=== PATIENT | female | born 1970 | race American Indian/Alaskan Native ===

== ENCOUNTER 2019-01-11 04:21 | Emergency (ER) | payer MEDICAID ==
[2019-01-11] MEDS ORDERED: VIMPAT PO ONE (04:27)
[2019-01-11] MEDS ORDERED: TYLENOL PO ONE (04:31)
--- NOTE | 2019-01-11 04:31 | Emergency Department Report ---
<KATIANADUSTYSHARON Carpio - Last Filed: 01/11/19 05:25> ED Seizure HPI - General Stated Complaint: SEIZURE Time Seen by Provider: 01/11/19 04:26 Source: patient, EMS - History of Present Illness Initial Comments: 48-year-old female presents to the ED following seizure at home. Patient has history of seizures, reportedly had multiple seizures on yesterday as well. Patient states she has been compliant with her Keppra, however she ran out of her Vimpat 2 days ago. Patient only complains of a mild headache, which is common following her seizures. MD Complaint: seizure -: This morning Description of Episode: loss of consciousness Witnessed:: Yes Seizure History: known seizure disorder Place: home Possible Precipitating Event: other (ran out of meds) Associated Symptoms: denies: chest pain, fever/chills, shortness of breath Treatments Prior to Arrival: none - Related Data Home Medications Medication Instructions Recorded Confirmed Last Taken levETIRAcetam [Keppra TAB] 1,000 mg PO BID 01/11/19 01/11/19 01/11/19 Previous Rx's Medication Instructions Recorded Last Taken Type Lacosamide [Vimpat] 100 mg PO Q12HR #60 tablet 01/11/19 Unknown Rx levETIRAcetam [Keppra TAB] 1,000 mg PO BID #60 tab 01/11/19 Unknown Rx Allergies Allergy/AdvReac Type Severity Reaction Status Date / Time phenytoin [From Dilantin] AdvReac Unknown Verified 01/11/19 04:33 ED Review of Systems Comment: All other systems reviewed and negative Constitutional: denies: chills, fever Respiratory: denies: shortness of breath Cardiovascular: denies: chest pain Gastrointestinal: denies: abdominal pain, nausea, vomiting Neurological: headache ED Past Medical Hx - Medications Home Medications: Home Medications Medication Instructions Recorded Confirmed Last Taken Type Lacosamide [Vimpat] 100 mg PO Q12HR #60 tablet 01/11/19 Unknown Rx levETIRAcetam [Keppra TAB] 1,000 mg PO BID 01/11/19 01/11/19 01/11/19 History levETIRAcetam [Keppra TAB] 1,000 mg PO BID #60 tab 01/11/19 Unknown Rx ED Physical Exam - General General appearance: alert, in no apparent distress - Head Head exam: Present: atraumatic, normocephalic - Eye Eye exam: Present: normal appearance, PERRL, EOMI - ENT ENT exam: Present: mucous membranes moist - Neck Neck exam: Present: normal inspection - Respiratory Respiratory exam: Present: normal lung sounds bilaterally. Absent: respiratory distress - Cardiovascular Cardiovascular Exam: Present: regular rate, normal rhythm - GI/Abdominal GI/Abdominal exam: Present: soft. Absent: distended - Extremities Exam Extremities exam: Present: normal inspection - Neurological Exam Neurological exam: Present: alert (responses are slow but appropriate), oriented X3, CN II-XII intact. Absent: motor sensory deficit - Psychiatric Psychiatric exam: Present: normal affect, normal mood - Skin Skin exam: Present: warm, dry, intact, normal color ED Medical Decision Making - Lab Data Result diagrams: 01/11/19 04:37 01/11/19 04:37 ED Disposition Clinical Impression: Seizure Disposition: DC-01 TO HOME OR SELFCARE Is pt being admited?: No Condition: Stable Additional Instructions: Do not drive or operate motor vehicles for the next 6 months. Take the seizure medications as directed. Follow up with a primary care doctor or neurology specialist within the next 2 weeks. Return to the emergency room right away w ith new, worsening or different symptoms, symptoms not present on initial emergency room evaluation. Prescriptions: Lacosamide [Vimpat] 100 mg PO Q12HR #60 tablet Referrals: MENA PASCUAL MD [Primary Care Provider] - 3-5 Days [facility] [Provider Group] - 3-5 Days VICENTE CHAMPAGNE MD [Referring] - 3-5 Days <GRACE DASH - Last Filed: 01/11/19 06:55> ED Review of Systems ROS: Stated complaint: SEIZURE Other details as noted in HPI ED Course Vital Signs 01/11/19 01/11/19 01/11/19 03:41 04:00 04:29 Temperature 97.9 F Pulse Rate 98 H Respiratory 16 Rate Blood Pressure 132/68 132/68 153/92 O2 Sat by Pulse 100 100 94 Oximetry 01/11/19 01/11/19 01/11/19 04:30 05:00 05:30 Temperature Pulse Rate 96 H 91 H 89 Respiratory 28 H 19 23 Rate Blood Pressure 153/92 153/92 124/42 O2 Sat by Pulse 95 95 98 Oximetry 01/11/19 01/11/19 06:00 06:30 Temperature Pulse Rate 85 84 Respiratory 20 17 Rate Blood Pressure 124/42 127/65 O2 Sat by Pulse 100 98 Oximetry - Reevaluation(s) Reevaluation #1: 01/11/19 06:52 The patient is seen and examined. The patient is walking with a steady gait. The patient is clinically sober. The patient counseled to not drive for the next 6 months. She verbalizes understanding. She indicates that she typically follows at [place] for her convulsive events. She states that she is not , and states she has not delivered her given within the past 6 weeks. She indicates that she is ready for discharge. She denies physical pain at this time. Patient pleasant, smiling, cooperative, vital signs within normal limits, and she does not appear to be in any acute distress. ED Medical Decision Making - Lab Data Result diagrams: 01/11/19 04:37 01/11/19 04:37 Vital Signs 01/11/19 01/11/19 01/11/19 03:41 04:00 04:29 Temperature 97.9 F Pulse Rate 98 H Respiratory 16 Rate Blood Pressure 132/68 132/68 153/92 O2 Sat by Pulse 100 100 94 Oximetry 01/11/19 01/11/19 01/11/19 04:30 05:00 05:30 Temperature Pulse Rate 96 H 91 H 89 Respiratory 28 H 19 23 Rate Blood Pressure 153/92 153/92 124/42 O2 Sat by Pulse 95 95 98 Oximetry 01/11/19 01/11/19 06:00 06:30 Temperature Pulse Rate 85 84 Respiratory 20 17 Rate Blood Pressure 124/42 127/65 O2 Sat by Pulse 100 98 Oximetry Lab Results 01/11/19 01/11/19 Range/Units 04:37 04:37 WBC 7.9 (4.5-11.0) K/mm3 RBC 4.72 (3.65-5.03) M/mm3 Hgb 12.9 (10.1-14.3) gm/dl Hct 39.8 (30.3-42.9) % MCV 84 (79-97) fl MCH 27 L (28-32) pg MCHC 32 (30-34) % RDW 17.0 H (13.2-15.2) % Plt Count 278 (140-440) K/mm3 Lymph % (Auto) 38.0 H (13.4-35.0) % [place] % (Auto) 5.0 (0.0-7.3) % Eos % (Auto) 2.9 (0.0-4.3) % Baso % (Auto) 0.7 (0.0-1.8) % Lymph # 3.0 (1.2-5.4) K/mm3 [place] # 0.4 (0.0-0.8) K/mm3 Eos # 0.2 (0.0-0.4) K/mm3 Baso # 0.1 (0.0-0.1) K/mm3 Seg Neutrophils % 53.4 (40.0-70.0) % Seg Neutrophils # 4.3 (1.8-7.7) K/mm3 Sodium 138 (137-145) mmol/L Potassium 3.7 (3.6-5.0) mmol/L Chloride 99.8 (98-107) mmol/L Carbon Dioxide 18 L (22-30) mmol/L Anion Gap 24 mmol/L BUN 6 L (7-17) mg/dL Creatinine 0.8 (0.7-1.2) mg/dL Estimated GFR > 60 ml/min BUN/Creatinine Ratio 8 % Glucose 125 H (65-100) mg/dL Calcium 9.1 (8.4-10.2) mg/dL Critical care attestation.: If time is entered above; I have spent that time in minutes in the direct care of this critically ill patient, excluding procedure time. ED Disposition Is pt being admited?: No Does the pt Need Aspirin: No
[2019-01-11 05:06] LABS: Basophils # (Auto) 0.1 K/mm3 (0.0-0.1); Basophils % (Auto) 0.7 % (0.0-1.8); Eosinophils # (Auto) 0.2 K/mm3 (0.0-0.4); Eosinophils % (Auto) 2.9 % (0.0-4.3); Hematocrit 39.8 % (30.3-42.9); Hemoglobin 12.9 gm/dl (10.1-14.3); Mean Corpuscular HGB Conc 32 % (30-34); Mean Corpuscular Volume 84 fl (79-97); Monocytes # (Auto) 0.4 K/mm3 (0.0-0.8); Platelet Count 278 K/mm3 (140-440); Red Blood Count 4.72 M/mm3 (3.65-5.03)
[2019-01-11 05:15] LABS: BUN/Creatinine Ratio 8; Blood Urea Nitrogen 6 mg/dL (7-17); Calcium 9.1 mg/dL (8.4-10.2); Hemolysis Index 19
[2019-01-11 06:32] VITALS: BP 127/65
[2019-01-11] MEDS ORDERED: KEPPRA PO ONE (06:53)
== END 2019-01-11 11:52 | disposition home or self-care (01) ==
LOC: ED 04:21
DX: G40.909 Epilepsy, unspecified, not intractable, without status epilepticus (principal); Z88.8 Allergy status to other drugs, medicaments and biological substances
CPT/HCPCS: 36415; 80048; 85025; 99283

== ENCOUNTER 2019-02-07 10:28 | Inpatient (IN) | payer MEDICAID ==
[2019-02-07 11:47] LABS: Basophils % (Auto) 0.4 % (0.0-1.8); Eosinophils # (Auto) 0.3 K/mm3 (0.0-0.4); Hematocrit 39.5 % (30.3-42.9); Hemoglobin 13.2 gm/dl (10.1-14.3); Lymphocytes # (Auto) 1.1 K/mm3 (1.2-5.4); Lymphocytes % (Auto) 15.5 % (13.4-35.0); Mean Corpuscular HGB Conc 33 % (30-34); Mean Corpuscular Volume 82 fl (79-97); Monocytes # (Auto) 0.3 K/mm3 (0.0-0.8); Monocytes % (Auto) 4.6 % (0.0-7.3); Platelet Count 331 K/mm3 (140-440); Red Blood Count 4.84 M/mm3 (3.65-5.03); Red Cell Distribution Width 16.3 % (13.2-15.2)
[2019-02-07 12:10] LABS: INR 1.34 (0.87-1.13); Partial Thromboplastin Time 27.7 Sec. (24.2-36.6)
[2019-02-07 12:25] LABS: BUN/Creatinine Ratio 8; Blood Urea Nitrogen 32 mg/dL (7-17); Calcium 7.6 mg/dL (8.4-10.2); Hemolysis Index 8
[2019-02-07] MEDS ORDERED: ZOFRAN IV ONE (12:37)
[2019-02-07] MEDS ORDERED: NACL 0.9% 1000 ML 2,000 ML IV ONE (12:37)
--- NOTE | 2019-02-07 12:38 | Emergency Department Report ---
ED General Adult HPI - General Chief complaint: Weakness Stated complaint: RASH/WEAKNESS Time Seen by Provider: 02/07/19 11:17 Source: patient, EMS (ems notes not available at time of chart dictation), RN notes reviewed Mode of arrival: Stretcher Limitations: No Limitations - History of Present Illness Initial comments: This is a 48-year-old female. The patient is not known to this provider previously. Her primary care doctor is Dr. Moya Her past medical history includes seizure, and she reportedly takes Keppra and vimpat Patient was feeling like she was in her usual state of health up until a few days ago, reports runny nose, nasal congestion, sinus fullness, and "it felt like I had the flu." Since then, she's been having generalized weakness, myalgias, nonspecific for any skin rash, started "all over my body." She reports taking [id number] medications, but no recent antibiotics. She describes dizziness, and generalized weakness. No chest pain, no abdominal pain. Symptoms are constant, did not radiate anywhere, worse with physical exertion, decreased with rest. She denies indwelling vaginal tampon or feminine pad. -: Gradual, days(s) Location: head, face, chest, back, abdomen, left, right, upper extremity, lower extremity Quality: aching Consistency: intermittent Improves with: rest Worsens with: movement - Related Data Home Medications Medication Instructions Recorded Confirmed Last Taken Lacosamide [Vimpat] 200 mg PO BID 02/07/19 02/07/19 02/07/19 Previous Rx's Medication Instructions Recorded Last Taken Type levETIRAcetam [Keppra TAB] 1,000 mg PO BID #60 tab 01/11/19 02/07/19 Rx Famotidine [Pepcid] 20 mg PO BID 7 Days tablet 02/09/19 Unknown Rx Prednisone [predniSONE 5 mg (6-Day 5 mg PO .TAPER #1 tab.ds.pk 02/09/19 Unknown Rx Pack, 21 Tabs)] diphenhydrAMINE [Benadryl CAP] 25 mg PO Q8HR #15 capsule 02/09/19 Unknown Rx Allergies Allergy/AdvReac Type Severity Reaction Status Date / Time doxycycline Allergy Rash Verified 02/07/19 10:56 Penicillins Allergy Rash Verified 02/07/19 10:56 phenytoin [From Dilantin] AdvReac Unknown Verified 01/11/19 04:33 ED Review of Systems ROS: Stated complaint: RASH/WEAKNESS Other details as noted in HPI Constitutional: chills, malaise, weakness Eyes: denies: eye discharge ENT: congestion Respiratory: shortness of breath. denies: wheezing Cardiovascular: denies: chest pain, syncope Gastrointestinal: denies: vomiting Genitourinary: denies: dysuria Musculoskeletal: arthralgia, myalgia Skin: rash, lesions Neurological: weakness Psychiatric: anxiety ED Past Medical Hx - Past Medical History Previous Medical History?: Yes Additional medical history: epilepsy - Surgical History Past Surgical History?: No - Social History Smoking Status: Never Smoker Substance Use Type: None - Medications Home Medications: Home Medications Medication Instructions Recorded Confirmed Last Taken Type levETIRAcetam [Keppra TAB] 1,000 mg PO BID #60 tab 01/11/19 02/07/19 02/07/19 Rx Lacosamide [Vimpat] 200 mg PO BID 02/07/19 02/07/19 02/07/19 History Famotidine [Pepcid] 20 mg PO BID 7 Days tablet 02/09/19 Unknown Rx Prednisone [predniSONE 5 mg (6-Day 5 mg PO .TAPER #1 tab.ds.pk 02/09/19 Unknown Rx Pack, 21 Tabs)] diphenhydrAMINE [Benadryl CAP] 25 mg PO Q8HR #15 capsule 02/09/19 Unknown Rx ED Physical Exam - General Limitations: No Limitations General appearance: alert, anxious, in distress, obese - Head Head exam: Present: atraumatic, normocephalic - Eye Eye exam: Present: normal appearance, EOMI. Absent: nystagmus - ENT ENT exam: Present: normal exam, normal orophraynx, mucous membranes moist, norm al external ear exam - Neck Neck exam: Present: normal inspection, full ROM. Absent: tenderness, meningismus - Respiratory Respiratory exam: Present: normal lung sounds bilaterally. Absent: respiratory distress - Cardiovascular Cardiovascular Exam: Present: regular rate, normal rhythm, normal heart sounds. Absent: bradycardia, tachycardia, irregular rhythm, systolic murmur, diastolic murmur, rubs, gallop - GI/Abdominal GI/Abdominal exam: Present: soft, normal bowel sounds. Absent: distended, tenderness, guarding, rigid, pulsatile mass - Rectal Rectal exam: Present: normal inspection - External exam: Present: normal external exam, bleeding (no tampon or retained foreign body noted. Chaperoned by nurse Jorge Esquivel) Speculum exam: Present: normal speculum exam - Extremities Exam Extremities exam: Present: normal inspection, full ROM, other (2+ pulses noted in the bilateral upper, lower extremities. Compartments soft. No long bony tenderness. The pelvis is stable.). Absent: pedal edema, joint swelling, calf tenderness - Back Exam Back exam: Present: normal inspection, full ROM. Absent: tenderness, CVA tenderness (R), CVA tenderness (L), paraspinal tenderness, vertebral tenderness - Neurological Exam Neurological exam: Present: alert, oriented X3, other (Extraocular movements intact. Tongue midline. No facial droop. Facial sensation intact to light touch in the V1, V2, V3 distribution bilaterally. 5 and 5 strength in 4 extremities.. Sensation is intact to light touch in 4 extremities.). Absent: motor sensory deficit - Psychiatric Psychiatric exam: Present: anxious - Skin Skin exam: Present: dry, rash, erythema (blanching nontender macular erythematous rash, which scattered papules.) ED Course Vital Signs 02/07/19 02/07/19 02/07/19 10:57 11:38 13:56 Temperature 99.1 F Pulse Rate 112 H Respiratory 15 17 15 Rate Blood Pressure 124/60 [Left] O2 Sat by Pulse 99 99 Oximetry ED Medical Decision Making - Lab Data Result diagrams: 02/09/19 06:23 02/09/19 06:23 Vital Signs 02/07/19 11:38 Respiratory 17 Rate Lab Results 02/07/19 02/07/19 02/07/19 Range/Units 11:34 11:34 11:34 WBC 6.9 (4.5-11.0) K/mm3 RBC 4.84 (3.65-5.03) M/mm3 Hgb 13.2 (10.1-14.3) gm/dl Hct 39.5 (30.3-42.9) % MCV 82 (79-97) fl MCH 27 L (28-32) pg MCHC 33 (30-34) % RDW 16.3 H (13.2-15.2) % Plt Count 331 (140-440) K/mm3 Lymph % (Auto) 15.5 (13.4-35.0) % [place] % (Auto) 4.6 (0.0-7.3) % Eos % (Auto) 5.0 H (0.0-4.3) % Baso % (Auto) 0.4 (0.0-1.8) % Lymph # 1.1 L (1.2-5.4) K/mm3 [place] # 0.3 (0.0-0.8) K/mm3 Eos # 0.3 (0.0-0.4) K/mm3 Baso # 0.0 (0.0-0.1) K/mm3 Seg Neutrophils % 74.5 H (40.0-70.0) % Seg Neutrophils # 5.2 (1.8-7.7) K/mm3 PT 16.2 H (12.2-14.9) Sec. INR 1.34 H (0.87-1.13) APTT 27.7 (24.2-36.6) Sec. Thrombin Time (15.1-19.6) Sec. Sodium 125 L (137-145) mmol/L Potassium 3.8 (3.6-5.0) mmol/L Chloride 84.6 L (98-107) mmol/L Carbon Dioxide 21 L (22-30) mmol/L Anion Gap 23 mmol/L BUN 32 H (7-17) mg/dL Creatinine 4.0 H (0.7-1.2) mg/dL Estimated GFR 14 ml/min BUN/Creatinine Ratio 8 % Glucose 180 H (65-100) mg/dL Lactic Acid (0.7-2.0) mmol/L Calcium 7.6 L (8.4-10.2) mg/dL Magnesium (1.7-2.3) mg/dL Total Bilirubin (0.1-1.2) mg/dL AST (5-40) units/L ALT (7-56) units/L Alkaline Phosphatase (35-129) units/L Total Creatine Kinase (30-135) units/L Troponin T < 0.010 (0.00-0.029) ng/mL Total Protein (6.3-8.2) g/dL Albumin (3.9-5) g/dL Albumin/Globulin Ratio % HCG, Quant (0-4) mIU/mL Salicylates (2.8-20.0) mg/dL Acetaminophen (10.0-30.0) ug/mL Plasma/Serum Alcohol (0-0.07) % 02/07/19 02/07/19 02/07/19 Range/Units 11:34 11:34 11:34 WBC (4.5-11.0) K/mm3 RBC (3.65-5.03) M/mm3 Hgb (10.1-14.3) gm/dl Hct (30.3-42.9) % MCV (79-97) fl MCH (28-32) pg MCHC (30-34) % RDW (13.2-15.2) % Plt Count (140-440) K/mm3 Lymph % (Auto) (13.4-35.0) % [place] % (Auto) (0.0-7.3) % Eos % (Auto) (0.0-4.3) % Baso % (Auto) (0.0-1.8) % Lymph # (1.2-5.4) K/mm3 [place] # (0.0-0.8) K/mm3 Eos # (0.0-0.4) K/mm3 Baso # (0.0-0.1) K/mm3 Seg Neutrophils % (40.0-70.0) % Seg Neutrophils # (1.8-7.7) K/mm3 PT (12.2-14.9) Sec. INR (0.87-1.13) APTT (24.2-36.6) Sec. Thrombin Time 17.8 (15.1-19.6) Sec. Sodium (137-145) mmol/L Potassium (3.6-5.0) mmol/L Chloride (98-107) mmol/L Carbon Dioxide (22-30) mmol/L Anion Gap mmol/L BUN (7-17) mg/dL Creatinine (0.7-1.2) mg/dL Estimated GFR ml/min BUN/Creatinine Ratio % Glucose (65-100) mg/dL Lactic Acid (0.7-2.0) mmol/L Calcium (8.4-10.2) mg/dL Magnesium (1.7-2.3) mg/dL Total Bilirubin (0.1-1.2) mg/dL AST (5-40) units/L ALT (7-56) units/L Alkaline Phosphatase (35-129) units/L Total Creatine Kinase 155 H (30-135) units/L Troponin T (0.00-0.029) ng/mL Total Protein (6.3-8.2) g/dL Albumin (3.9-5) g/dL Albumin/Globulin Ratio % HCG, Quant (0-4) mIU/mL Salicylates < 0.3 L (2.8-20.0) mg/dL Acetaminophen (10.0-30.0) ug/mL Plasma/Serum Alcohol (0-0.07) % 02/07/19 02/07/19 02/07/19 Range/Units 11:34 11:34 11:34 WBC (4.5-11.0) K/mm3 RBC (3.65-5.03) M/mm3 Hgb (10.1-14.3) gm/dl Hct (30.3-42.9) % MCV (79-97) fl MCH (28-32) pg MCHC (30-34) % RDW (13.2-15.2) % Plt Count (140-440) K/mm3 Lymph % (Auto) (13.4-35.0) % [place] % (Auto) (0.0-7.3) % Eos % (Auto) (0.0-4.3) % Baso % (Auto) (0.0-1.8) % Lymph # (1.2-5.4) K/mm3 [place] # (0.0-0.8) K/mm3 Eos # (0.0-0.4) K/mm3 Baso # (0.0-0.1) K/mm3 Seg Neutrophils % (40.0-70.0) % Seg Neutrophils # (1.8-7.7) K/mm3 PT (12.2-14.9) Sec. INR (0.87-1.13) APTT (24.2-36.6) Sec. Thrombin Time (15.1-19.6) Sec. Sodium (137-145) mmol/L Potassium (3.6-5.0) mmol/L Chloride (98-107) mmol/L Carbon Dioxide (22-30) mmol/L Anion Gap mmol/L BUN (7-17) mg/dL Creatinine (0.7-1.2) mg/dL Estimated GFR ml/min BUN/Creatinine Ratio % Glucose (65-100) mg/dL Lactic Acid (0.7-2.0) mmol/L Calcium (8.4-10.2) mg/dL Magnesium (1.7-2.3) mg/dL Total Bilirubin (0.1-1.2) mg/dL AST (5-40) units/L ALT (7-56) units/L Alkaline Phosphatase (35-129) units/L Total Creatine Kinase (30-135) units/L Troponin T (0.00-0.029) ng/mL Total Protein (6.3-8.2) g/dL Albumin (3.9-5) g/dL Albumin/Globulin Ratio % HCG, Quant < 2 (0-4) mIU/mL Salicylates (2.8-20.0) mg/dL Acetaminophen < 5.0 L (10.0-30.0) ug/mL Plasma/Serum Alcohol < 0.01 (0-0.07) % 02/07/19 02/07/19 Range/Units 12:57 12:57 WBC (4.5-11.0) K/mm3 RBC (3.65-5.03) M/mm3 Hgb (10.1-14.3) gm/dl Hct (30.3-42.9) % MCV (79-97) fl MCH (28-32) pg MCHC (30-34) % RDW (13.2-15.2) % Plt Count (140-440) K/mm3 Lymph % (Auto) (13.4-35.0) % [place] % (Auto) (0.0-7.3) % Eos % (Auto) (0.0-4.3) % Baso % (Auto) (0.0-1.8) % Lymph # (1.2-5.4) K/mm3 [place] # (0.0-0.8) K/mm3 Eos # (0.0-0.4) K/mm3 Baso # (0.0-0.1) K/mm3 Seg Neutrophils % (40.0-70.0) % Seg Neutrophils # (1.8-7.7) K/mm3 PT (12.2-14.9) Sec. INR (0.87-1.13) APTT (24.2-36.6) Sec. Thrombin Time (15.1-19.6) Sec. Sodium (137-145) mmol/L Potassium (3.6-5.0) mmol/L Chloride (98-107) mmol/L Carbon Dioxide (22-30) mmol/L Anion Gap mmol/L BUN (7-17) mg/dL Creatinine (0.7-1.2) mg/dL Estimated GFR ml/min BUN/Creatinine Ratio % Glucose (65-100) mg/dL Lactic Acid 2.70 H* (0.7-2.0) mmol/L Calcium (8.4-10.2) mg/dL Magnesium 1.50 L (1.7-2.3) mg/dL Total Bilirubin 0.30 (0.1-1.2) mg/dL AST 19 (5-40) units/L ALT 10 (7-56) units/L Alkaline Phosphatase 74 (35-129) units/L Total Creatine Kinase (30-135) units/L Troponin T (0.00-0.029) ng/mL Total Protein 6.2 L (6.3-8.2) g/dL Albumin 2.6 L (3.9-5) g/dL Albumin/Globulin Ratio 0.7 % HCG, Quant (0-4) mIU/mL Salicylates (2.8-20.0) mg/dL Acetaminophen (10.0-30.0) ug/mL Plasma/Serum Alcohol (0-0.07) % - Medical Decision Making Differential diagnosis, including limited to: Acute renal insufficiency, dehydration, vasomotor nephropathy, renal insufficiency, electrolyte derangement, viral syndrome Assessment and plan: 48-year-old female, with a complaint of weakness, rash, malaise and fatigue. Is tachycardic, with a low-grade temperature, found to have lactic acidosis, suspect viral syndrome. Patient will be given IV fluids. Her physical exam does not demonstrate any retained foreign bodies, and is therefore not consistent with toxic shock syndrome. She is not taking any prescription antibiotics by her history. We will give her IV fluids, and Zofran for nausea. We have recommended admission to the hospital for IV hydration, and supportive care for presumed acute renal insufficiency, and probable hypovolemic hyponatremia. Discussed with Hospital physician, Dr. Warren Cottrell who has accepted the patient to the medical service. Discussed with nephrology on-call, Dr. Robles, who will follow in consultation. Patient's history and physical exam are not consistent with stroke at this time. Critical Care Time: Yes Critical care time in (mins) excluding proc time.: 35 Critical care attestation.: If time is entered above; I have spent that time in minutes in the direct care of this critically ill patient, excluding procedure time. ED Disposition Clinical Impression: GOSIA (acute kidney injury), Rash and other nonspecific skin eruption Disposition: OP ADMIT IP TO THIS HOSP Is pt being admited?: Yes Condition: Fair
[2019-02-07 13:48] LABS: Alanine Aminotransferase 10 units/L (7-56); Albumin 2.6 g/dL (3.9-5)
[2019-02-07] MEDS ORDERED: MAGNESIUM SULFATE 2GM/50ML 2 GM/50 ML BAG IV ONE ×3 (13:51→15:49)
[2019-02-07 13:54] LABS: Bilirubin,Direct < 0.2 mg/dL (0-0.2)
[2019-02-07 14:04] LABS: Bacteria,Urine 1+ /HPF (Negative); Bilirubin,Urine NEG (Negative); Blood,Urine NEG (Negative); Color,Urine Amber (Yellow); Mucus,Urine FEW /HPF; Protein,Urine <15 mg/dL mg/dL (Negative)
[2019-02-07 14:05] LABS: Creatinine,Urine 329.5 mg/dL (0.1-20.0)
--- NOTE | 2019-02-07 14:18 | History and Physical Report ---
History of Present Illness Date of examination: 02/07/19 Date of admission: 02/07/19 13:53 Chief complaint: Rash all over History of present illness: Patient was feeling like she was in her usual state of health up until a few days ago, reports runny nose, nasal congestion, sinus fullness, and "it felt like I had the flu." Since then, she's been having generalized weakness, myalgias, skin rash all over.Had similar generalized skin rash multiple times in the past few years.Usually takes benadryl and the rash goes away.Did not see a home mortgage disclosure act specialist. She reports taking [id number] medications--Theraflu, but no recent antibiotics. She describes dizziness, and generalized weakness. No chest pain, no abdominal pain.Her past medical history includes seizure, and she reportedly takes Keppra and vimpat Symptoms are constant, did not radiate anywhere, worse with physical exertion, decreased with rest. Past Medical History Seizures Surgical History Past Surgical History?: No Social History Smoking Status: Never Smoker Substance Use Type: None Family History Htn Medications Home Medications: Home Medications Medication Instructions Recorded Confirmed Last Taken Type levETIRAcetam [Keppra TAB] 1,000 mg PO BID #60 tab 01/11/19 02/07/19 Unknown Rx Review of Systems ROS: Stated complaint: RASH/WEAKNESS Other details as noted in HPI Constitutional: chills, malaise, weakness Eyes: denies: eye discharge ENT: congestion Respiratory: shortness of breath. denies: wheezing Cardiovascular: denies: chest pain, syncope Gastrointestinal: denies: vomiting Genitourinary: denies: dysuria Musculoskeletal: arthralgia, myalgia Skin: rash, lesions Neurological: weakness Psychiatric: anxiety Medications and Allergies Allergies Allergy/AdvReac Type Severity Reaction Status Date / Time doxycycline Allergy Rash Verified 02/07/19 10:56 Penicillins Allergy Rash Verified 02/07/19 10:56 phenytoin [From Dilantin] AdvReac Unknown Verified 01/11/19 04:33 Home Medications Medication Instructions Recorded Confirmed Last Taken Type levETIRAcetam [Keppra TAB] 1,000 mg PO BID #60 tab 01/11/19 02/07/19 02/07/19 Rx Lacosamide [Vimpat] 200 mg PO BID 02/07/19 02/07/19 02/07/19 History Active Meds: Active Medications Magnesium Sulfate (Magnesium Sulfate 2gm/50ml) 2 gm in 50 mls @ 100 mls/hr IV ONCE ONE Stop: 02/07/19 14:20 Exam - Constitutional Vitals: Temp Pulse Resp BP Pulse Ox 99.1 F 112 H 15 124/60 99 02/07/19 13:56 02/07/19 13:56 02/07/19 13:56 02/07/19 13:56 02/07/19 13:56 General appearance: Present: no acute distress, well-nourished - EENT Eyes: Present: PERRL ENT: hearing intact, clear oral mucosa - Neck Neck: Present: supple, normal ROM - Respiratory Respiratory effort: normal Respiratory: bilateral: CTA - Cardiovascular Heart rate: 78 Rhythm: regular Heart Sounds: Present: S1 & S2. Absent: rub, click - Extremities Extremities: pulses symmetrical, No edema Peripheral Pulses: within normal limits - Abdominal General gastrointestinal: Present: soft, non-tender, non-distended, normal bowel sounds Female genitourinary: Present: normal - Integumentary Integumentary: Present: clear, warm, dry - Musculoskeletal Musculoskeletal: gait normal, strength equal bilaterally - Psychiatric Psychiatric: appropriate mood/affect, intact judgment & insight - Neurologic Neurologic: CNII-XII intact, moves all extremities Results - Labs CBC & Chem 7: 02/08/19 06:13 02/08/19 06:13 Labs: Laboratory Last Values WBC 6.9 K/mm3 (4.5-11.0) 02/07/19 11:34 RBC 4.84 M/mm3 (3.65-5.03) 02/07/19 11:34 Hgb 13.2 gm/dl (10.1-14.3) 02/07/19 11:34 Hct 39.5 % (30.3-42.9) 02/07/19 11:34 MCV 82 fl (79-97) 02/07/19 11:34 MCH 27 pg (28-32) L 02/07/19 11:34 MCHC 33 % (30-34) 02/07/19 11:34 RDW 16.3 % (13.2-15.2) H 02/07/19 11:34 Plt Count 331 K/mm3 (140-440) 02/07/19 11:34 Lymph % (Auto) 15.5 % (13.4-35.0) 02/07/19 11:34 [place] % (Auto) 4.6 % (0.0-7.3) 02/07/19 11:34 Eos % (Auto) 5.0 % (0.0-4.3) H 02/07/19 11:34 Baso % (Auto) 0.4 % (0.0-1.8) 02/07/19 11:34 Lymph # 1.1 K/mm3 (1.2-5.4) L 02/07/19 11:34 [place] # 0.3 K/mm3 (0.0-0.8) 02/07/19 11:34 Eos # 0.3 K/mm3 (0.0-0.4) 02/07/19 11:34 Baso # 0.0 K/mm3 (0.0-0.1) 02/07/19 11:34 Seg Neutrophils % 74.5 % (40.0-70.0) H 02/07/19 11:34 Seg Neutrophils # 5.2 K/mm3 (1.8-7.7) 02/07/19 11:34 PT 16.2 Sec. (12.2-14.9) H 02/07/19 11:34 INR 1.34 (0.87-1.13) H 02/07/19 11:34 APTT 27.7 Sec. (24.2-36.6) 02/07/19 11:34 17.8 Sec. (15.1-19.6) 02/07/19 11:34 Sodium 125 mmol/L (137-145) L 02/07/19 11:34 Potassium 3.8 mmol/L (3.6-5.0) 02/07/19 11:34 Chloride 84.6 mmol/L (98-107) L 02/07/19 11:34 Carbon Dioxide 21 mmol/L (22-30) L 02/07/19 11:34 23 mmol/L 02/07/19 11:34 BUN 32 mg/dL (7-17) H 02/07/19 11:34 4.0 mg/dL (0.7-1.2) H 02/07/19 11:34 Estimated GFR 14 ml/min 02/07/19 11:34 8 % 02/07/19 11:34 Glucose 180 mg/dL (65-100) H 02/07/19 11:34 Lactic Acid 2.70 mmol/L (0.7-2.0) H* 02/07/19 12:57 Calcium 7.6 mg/dL (8.4-10.2) L 02/07/19 11:34 Magnesium 1.50 mg/dL (1.7-2.3) L 02/07/19 12:57 0.30 mg/dL (0.1-1.2) 02/07/19 12:57 < 0.2 mg/dL (0-0.2) 02/07/19 12:57 0.1 mg/dL 02/07/19 12:57 AST 19 units/L (5-40) 02/07/19 12:57 ALT 10 units/L (7-56) 02/07/19 12:57 74 units/L (35-129) 02/07/19 12:57 155 units/L (30-135) H 02/07/19 11:34 < 0.010 ng/mL (0.00-0.029) 02/07/19 11:34 6.2 g/dL (6.3-8.2) L 02/07/19 12:57 2.6 g/dL (3.9-5) L 02/07/19 12:57 0.7 % 02/07/19 12:57 TSH 6.800 mlU/mL (0.270-4.200) H 02/07/19 12:57 HCG, Quant < 2 mIU/mL (0-4) 02/07/19 11:34 [place] (Yellow) 02/07/19 13:40 Cloudy (Clear) 02/07/19 13:40 5.0 (5.0-7.0) 02/07/19 13:40 Ur Specific [place] 1.019 (1.003-1.030) 02/07/19 13:40 <15 mg/dl mg/dL (Negative) 02/07/19 13:40 Neg mg/dL (Negative) 02/07/19 13:40 Neg mg/dL (Negative) 02/07/19 13:40 Neg (Negative) 02/07/19 13:40 Neg (Negative) 02/07/19 13:40 Neg (Negative) 02/07/19 13:40 2.0 mg/dL (<2.0) 02/07/19 13:40 Ur Leukocyte Esterase Neg (Negative) 02/07/19 13:40 3.0 /HPF (0.0-6.0) 02/07/19 13:40 2.0 /HPF (0.0-6.0) 02/07/19 13:40 U Epithel Cells (Auto) 1.0 /HPF (0-13.0) 02/07/19 13:40 1+ /HPF (Negative) 02/07/19 13:40 Few /HPF 02/07/19 13:40 329.5 mg/dL (0.1-20.0) H 02/07/19 13:40 10 mmol/L 02/07/19 13:40 Salicylates < 0.3 mg/dL (2.8-20.0) L 02/07/19 11:34 Acetaminophen < 5.0 ug/mL (10.0-30.0) L 02/07/19 11:34 Plasma/Serum Alcohol < 0.01 % (0-0.07) 02/07/19 11:34 19 IU/ml (0-13) H 02/07/19 12:57 Short CBC 02/07/19 02/08/19 Range/Units 11:34 06:13 WBC 6.9 5.8 (4.5-11.0) K/mm3 Hgb 13.2 10.6 (10.1-14.3) gm/dl Hct 39.5 32.2 D (30.3-42.9) % Plt Count 331 241 (140-440) K/mm3 BMP 02/07/19 02/08/19 11:34 06:13 Sodium 125 L 132 L D Potassium 3.8 3.8 Chloride 84.6 L 94.5 L Carbon Dioxide 21 L 22 BUN 32 H 27 H Creatinine 4.0 H 1.7 H D Glucose 180 H 175 H Calcium 7.6 L 7.2 L Cardiac Enzymes 02/07/19 02/07/19 Range/Units 11:34 11:34 Total Creatine Kinase 155 H (30-135) units/L Troponin T < 0.010 (0.00-0.029) ng/mL Liver Function 02/07/19 02/08/19 Range/Units 12:57 06:13 Total Bilirubin 0.30 0.20 (0.1-1.2) mg/dL Direct Bilirubin < 0.2 (0-0.2) mg/dL AST 19 8 (5-40) units/L ALT 10 7 (7-56) units/L Alkaline Phosphatase 74 61 (35-129) units/L Albumin 2.6 L 2.6 L (3.9-5) g/dL Urine 02/07/19 Range/Units 13:40 Urine Color [place] (Yellow) Urine pH 5.0 (5.0-7.0) Ur Specific [place] 1.019 (1.003-1.030) Urine Protein <15 mg/dl (Negative) mg/dL Urine Glucose (UA) Neg (Negative) mg/dL - Imaging and Cardiology EKG: report reviewed Assessment and Plan Advance Directives: Yes (Full code) VTE prophylaxis?: Chemical Plan of care discussed with patient/family: Yes - Patient Problems (1) GOSIA (acute kidney injury) Current Visit: Yes Status: Acute Plan to address problem: Sec to ATN IV Fluids for now Nephrology consult requested Serial BMP's (2) Lactic acidosis Current Visit: Yes Status: Acute Plan to address problem: Etiology unclear Nonspecific?? (3) Rash and other nonspecific skin eruption Current Visit: Yes Status: Acute Plan to address problem: Recurrent Etio unclear Neuro consult reg seizure medicine causing rash needs to see home mortgage disclosure act specialist as out patient IV low dose solumedrol for now.Bridge to Oral prednisone (4) Seizure disorder Current Visit: Yes Status: Chronic Plan to address problem: Cont Keppra and Vimpat Neuro consult reg Vimpat/Keppra causing generalized rash (5) DVT prophylaxis Current Visit: Yes Status: Acute Plan to address problem: On Lovenox and GI prophylaxis Patient to be discharged on Famotidine which may prevent allergic rash
[2019-02-07] MEDS ORDERED: SODIUM CHLORIDE FLUSH SYRINGE 10 ML IV PRN (14:21)
[2019-02-07] MEDS ORDERED: PERCOCET 5/325 PO PRN (14:21)
[2019-02-07] MEDS ORDERED: ZOFRAN IV PRN (14:21)
[2019-02-07] MEDS ORDERED: DILAUDID IV PRN (14:21)
[2019-02-07] MEDS ORDERED: REGLAN IV PRN (14:21)
[2019-02-07] MEDS ORDERED: TYLENOL PO PRN (14:21)
[2019-02-07] MEDS ORDERED: NACL 0.9% 1000 ML 1,000 ML IV ONE (15:02)
[2019-02-07] MEDS ORDERED: MACROBID PO ONE (15:30)
[2019-02-07] MEDS ORDERED: NACL 0.9% 1000 ML 1,000 ML ONE (15:49)
[2019-02-07] MEDS ORDERED: PEPCID ONE (15:50)
[2019-02-07] MEDS ORDERED: ZOFRAN ONE (15:53)
[2019-02-07] MEDS ORDERED: SOLU-Medrol ONE (15:53)
[2019-02-07] MEDS: SOLU-Medrol IV SCH ×2 (16:03→23:22)
[2019-02-07] MEDS: SODIUM CHLORIDE FLUSH SYRINGE 10 ML IV SCH ×2 (16:03→22:55)
--- NOTE | 2019-02-07 17:02 | Consultation ---
History of Present Illness - Reason for Consult Consult date: 02/07/19 acute renal failure Requesting physician: FELICIANO JIM - History of Present Illness This is a 48 yo AAF with past medical history of bipolar disease and seizure disorder, who presents to [facility] ER presenting with generalized weakness, myalgias, nonspecific for any skin rash, started "all over my body." Patient was feeling like she was in her usual state of health up until a few days ago, reports runny nose, nasal congestion, sinus fullness along with flu like symptoms and pt took OTC theraflu after which above symptoms started. Pt denies recent antibiotics. in ER labs showed significant elevated BUN/Cr at 32/4mg/dl compared to prior Cr of 0.9mg/dl on 01/11/19, for which renal consult is requested. pt also reports that she had episode of vomiting and diarrhea last night. pt denies previous r enal disease, no recent NSAIDs or IV contrast exposure reported. patient has multiple allergies to dilantin, doxycycline, Penicillins, phenobarbital reported. Past History Past Medical History: other (bipolar disease, seizure disorder ) Past Surgical History: No surgical history Social history: denies: smoking, alcohol abuse, prescription drug abuse, IV drug use Family history: no significant family history Medications and Allergies Allergies Allergy/AdvReac Type Severity Reaction Status Date / Time doxycycline Allergy Rash Verified 02/07/19 10:56 Penicillins Allergy Rash Verified 02/07/19 10:56 phenytoin [From Dilantin] AdvReac Unknown Verified 01/11/19 04:33 Home Medications Medication Instructions Recorded Confirmed Last Taken Type levETIRAcetam [Keppra TAB] 1,000 mg PO BID #60 tab 01/11/19 02/07/19 Unknown Rx Active Meds: Active Medications Acetaminophen (Tylenol) 650 mg PO Q4H PRN PRN Reason: Pain MILD(1-3)/Fever >100.5/PABON Diphenhydramine HCl (Benadryl) 25 mg IV Q6H PRN PRN Reason: Itching Famotidine (Pepcid) 10 mg PO BID CORNELIUS Hydromorphone HCl (Dilaudid) 0.5 mg IV Q3H PRN PRN Reason: Pain , Severe (7-10) Sodium Chloride (Nacl 0.9% 1000 Ml) 1,000 mls @ 100 mls/hr IV DIRECT [facility] Methylprednisolone Sodium Succinate (Solu-Medrol) 60 mg IV Q8HR [facility] Last Admin: 02/07/19 16:03 Dose: 60 mg Documented by: Metoclopramide HCl (Reglan) 5 mg IV Q6H PRN PRN Reason: Nausea And Vomiting Ondansetron HCl (Zofran) 4 mg IV Q8H PRN PRN Reason: Nausea And Vomiting Oxycodone/Acetaminophen (Percocet 5/325) 1 tab PO Q6H PRN PRN Reason: Pain, Moderate (4-6) Sodium Chloride (Sodium Chloride Flush Syringe 10 Ml) 10 ml IV BID [facility] Last Admin: 02/07/19 16:03 Dose: 10 ml Documented by: Sodium Chloride (Sodium Chloride Flush Syringe 10 Ml) 10 ml IV PRN PRN PRN Reason: LINE FLUSH Exam - Vital Signs Vital signs: Vital Signs Resp Pulse Ox 15 99 02/07/19 10:57 02/07/19 10:57 - General Appearance General appearance: well-developed, well-nourished, appears stated age, obese EENT: ATNC, PERRL, mucous membranes moist Neck: Present: neck supple Respiratory: Clear to Ascultation Heart: regular, S1S2 Gastrointestinal: Present: normoactive bowel sounds, obese Integumentary: rash (diffuse maular rash throughpout entire body incl. the palms ), other (no edema ) Neurologic: no focal deficit, alert and oriented x3, strength 5/5, CN 3-12 intact Psychiatric: mood/affect appropriate, cooperative Results - Lab Results 02/07/19 11:34 02/07/19 11:34 Most recent lab results Calcium 7.6 mg/dL (8.4-10.2) L 02/07/19 11:34 Magnesium 1.50 mg/dL (1.7-2.3) L 02/07/19 12:57 329.5 mg/dL (0.1-20.0) H 02/07/19 13:40 10 mmol/L 02/07/19 13:40 Laboratory Tests 02/07/19 02/07/19 02/07/19 11:34 11:34 11:34 Total Creatine Kinase 155 H Total Protein Albumin Albumin/Globulin Ratio TSH Urine Color Urine Turbidity Urine pH Ur Specific [place] Urine Protein Urine Glucose (UA) Urine Ketones Urine Blood Urine Nitrite Urine Bilirubin Urine Urobilinogen Ur Leukocyte Esterase Urine WBC (Auto) Urine RBC (Auto) U Epithel Cells (Auto) Urine Bacteria (Auto) Urine Mucus Urine Creatinine Urine Sodium Salicylates < 0.3 L Acetaminophen < 5.0 L Plasma/Serum Alcohol Rheumatoid Factor HIV 1&2 Antibody Rapid HIV P24 Antigen 02/07/19 02/07/19 02/07/19 11:34 12:57 12:57 Total Creatine Kinase Total Protein 6.2 L Albumin 2.6 L Albumin/Globulin Ratio 0.7 TSH Urine Color Urine Turbidity Urine pH Ur Specific [place] Urine Protein Urine Glucose (UA) Urine Ketones Urine Blood Urine Nitrite Urine Bilirubin Urine Urobilinogen Ur Leukocyte Esterase Urine WBC (Auto) Urine RBC (Auto) U Epithel Cells (Auto) Urine Bacteria (Auto) Urine Mucus Urine Creatinine Urine Sodium Salicylates Acetaminophen Plasma/Serum Alcohol < 0.01 Rheumatoid Factor 19 H HIV 1&2 Antibody Rapid HIV P24 Antigen 02/07/19 02/07/19 02/07/19 12:57 12:57 13:40 Total Creatine Kinase Total Protein Albumin Albumin/Globulin Ratio TSH 6.800 H Urine Color [place] Urine Turbidity Cloudy Urine pH 5.0 Ur Specific [place] 1.019 Urine Protein <15 mg/dl Urine Glucose (UA) Neg Urine Ketones Neg Urine Blood Neg Urine Nitrite Neg Urine Bilirubin Neg Urine Urobilinogen 2.0 Ur Leukocyte Esterase Neg Urine WBC (Auto) 3.0 Urine RBC (Auto) 2.0 U Epithel Cells (Auto) 1.0 Urine Bacteria (Auto) 1+ Urine Mucus Few Urine Creatinine Urine Sodium Salicylates Acetaminophen Plasma/Serum Alcohol Rheumatoid Factor HIV 1&2 Antibody Rapid Non react HIV P24 Antigen Non react 02/07/19 13:40 Total Creatine Kinase Total Protein Albumin Albumin/Globulin Ratio TSH Urine Color Urine Turbidity Urine pH Ur Specific [place] Urine Protein Urine Glucose (UA) Urine Ketones Urine Blood Urine Nitrite Urine Bilirubin Urine Urobilinogen Ur Leukocyte Esterase Urine WBC (Auto) Urine RBC (Auto) U Epithel Cells (Auto) Urine Bacteria (Auto) Urine Mucus Urine Creatinine 329.5 H Urine Sodium 10 Salicylates Acetaminophen Plasma/Serum Alcohol Rheumatoid Factor HIV 1&2 Antibody Rapid HIV P24 Antigen Assessment and Plan - Patient Problems (1) GOSIA (acute kidney injury) Current Visit: Yes Status: Acute Plan to address problem: acute kidney injury most likely secondary to pre-renal azotemia in the setting of acute allergic rash, vomiting/diarrhea. urine Na low supporting diagnosis of pre-renal azotemia. cont IV NS at 100ml/hr. check urine protein/cr ratio, urine eos, DOREEN, C3/4, RPR. CPK only 150s. avoid nephrotoxins, NSAIDs, IV contrast. strict I/Os. will monitor lytes and renal parameters closely and make further recommendations. (2) Eosinophilia Current Visit: Yes Status: Acute Plan to address problem: most likely associated with recent OTC meds. (3) Rash and other nonspecific skin eruption Current Visit: Yes Status: Acute Plan to address problem: most likely associated with recent OTC meds. pt is started on IV solumedrol/benadryl. DOREEN, C3/4, RPR pending (4) Lactic acidosis Current Visit: Yes Status: Acute Plan to address problem: trend lactic acid level. cont IV NS at 100ml/hr to maintain MAP > 65mmhg.
[2019-02-07] MEDS: PEPCID PO SCH ×2 (17:53→23:21)
[2019-02-07] MEDS: BENADRYL IV PRN (17:54)
[2019-02-07 19:43] LABS: Creatinine,Urine 285.6 mg/dL (0.1-20.0)
[2019-02-07] MEDS: NACL 0.9% 1000 ML 1,000 ML IV SCH (22:53)
[2019-02-08] MEDS: KEPPRA PO SCH ×4 (00:29→22:35)
[2019-02-08] MEDS: VIMPAT PO SCH ×3 (00:29→21:38)
[2019-02-08] MEDS: BENADRYL IV PRN ×2 (03:59→22:04)
[2019-02-08] MEDS: SOLU-Medrol IV SCH ×3 (05:56→21:39)
[2019-02-08 07:08] LABS: Basophils % (Auto) 0.2 % (0.0-1.8); Eosinophils # (Auto) 0.1 K/mm3 (0.0-0.4); Hemoglobin 10.6 gm/dl (10.1-14.3); Lymphocytes # (Auto) 0.8 K/mm3 (1.2-5.4); Lymphocytes % (Auto) 14.5 % (13.4-35.0); Mean Corpuscular HGB Conc 33 % (30-34); Mean Corpuscular Volume 83 fl (79-97); Monocytes # (Auto) 0.1 K/mm3 (0.0-0.8); Monocytes % (Auto) 2.6 % (0.0-7.3); Platelet Count 241 K/mm3 (140-440); Red Blood Count 3.91 M/mm3 (3.65-5.03); Red Cell Distribution Width 16.5 % (13.2-15.2)
[2019-02-08 07:16] LABS: Albumin 2.6 g/dL (3.9-5); Calcium 7.2 mg/dL (8.4-10.2)
[2019-02-08 07:19] LABS: Hematocrit 32.2 % (30.3-42.9)
--- NOTE | 2019-02-08 08:38 | Progress Note ---
Assessment and Plan Assessment and plan: Acute kidney injury. Due to vasomotor nephropathy Admitted to med/surg Creatinine improving. Cr 1.7 down from 4.0 Continue iv fluid Nephrology following seizure disorder. ciontinue Keppra Skin rash may be allergic Benadryl Full code status. History Interval history: Skin rash history of eczema Hospitalist Physical - Physical exam Narrative exam: Gen: Not in acute distress, lying in bed, morbidly obese HEENT: Normocephalic, atraumatic Neck: supple, no JVD Heart: S1 and S2 reg, no murmurs, rubs or gallop Lungs: Clear to auscultation, no rhonchi, no wheeze Abd: soft, non tender, non distended, normal BS, Ext: No edema, no clubbing, no cyanosis Neuro: Awake, alert, oriented X 3, no focal neurological signs Skin; skin rash on face, trunk - Constitutional Vitals: Temp Pulse Resp BP Pulse Ox 98.5 F 99 H 18 109/48 95 02/07/19 23:01 02/07/19 23:01 02/07/19 23:01 02/07/19 23:01 02/07/19 23:01 General appearance: Present: no acute distress, well-nourished Results - Labs CBC & Chem 7: 02/08/19 06:13 02/08/19 06:13 Labs: Laboratory Last Values WBC 5.8 K/mm3 (4.5-11.0) 02/08/19 06:13 RBC 3.91 M/mm3 (3.65-5.03) 02/08/19 06:13 Hgb 10.6 gm/dl (10.1-14.3) 02/08/19 06:13 Hct 32.2 % (30.3-42.9) D 02/08/19 06:13 MCV 83 fl (79-97) 02/08/19 06:13 MCH 27 pg (28-32) L 02/08/19 06:13 MCHC 33 % (30-34) 02/08/19 06:13 RDW 16.5 % (13.2-15.2) H 02/08/19 06:13 Plt Count 241 K/mm3 (140-440) 02/08/19 06:13 Lymph % (Auto) 14.5 % (13.4-35.0) 02/08/19 06:13 [place] % (Auto) 2.6 % (0.0-7.3) 02/08/19 06:13 Eos % (Auto) 1.0 % (0.0-4.3) 02/08/19 06:13 Baso % (Auto) 0.2 % (0.0-1.8) 02/08/19 06:13 Lymph # 0.8 K/mm3 (1.2-5.4) L 02/08/19 06:13 [place] # 0.1 K/mm3 (0.0-0.8) 02/08/19 06:13 Eos # 0.1 K/mm3 (0.0-0.4) 02/08/19 06:13 Baso # 0.0 K/mm3 (0.0-0.1) 02/08/19 06:13 Seg Neutrophils % 81.7 % (40.0-70.0) H 02/08/19 06:13 Seg Neutrophils # 4.7 K/mm3 (1.8-7.7) 02/08/19 06:13 PT 16.2 Sec. (12.2-14.9) H 02/07/19 11:34 INR 1.34 (0.87-1.13) H 02/07/19 11:34 APTT 27.7 Sec. (24.2-36.6) 02/07/19 11:34 17.8 Sec. (15.1-19.6) 02/07/19 11:34 Sodium 132 mmol/L (137-145) L D 02/08/19 06:13 Potassium 3.8 mmol/L (3.6-5.0) 02/08/19 06:13 Chloride 94.5 mmol/L (98-107) L 02/08/19 06:13 Carbon Dioxide 22 mmol/L (22-30) 02/08/19 06:13 19 mmol/L 02/08/19 06:13 BUN 27 mg/dL (7-17) H 02/08/19 06:13 1.7 mg/dL (0.7-1.2) H D 02/08/19 06:13 Estimated GFR 39 ml/min 02/08/19 06:13 16 % 02/08/19 06:13 Glucose 175 mg/dL (65-100) H 02/08/19 06:13 POC Glucose 176 (70-105) H 02/07/19 12:29 5.8 % (4-6) 02/07/19 11:34 Lactic Acid 1.50 mmol/L (0.7-2.0) 02/08/19 00:28 Calcium 7.2 mg/dL (8.4-10.2) L 02/08/19 06:13 Magnesium 1.50 mg/dL (1.7-2.3) L 02/07/19 12:57 0.20 mg/dL (0.1-1.2) 02/08/19 06:13 < 0.2 mg/dL (0-0.2) 02/07/19 12:57 0.1 mg/dL 02/07/19 12:57 AST 8 units/L (5-40) 02/08/19 06:13 ALT 7 units/L (7-56) 02/08/19 06:13 61 units/L (35-129) 02/08/19 06:13 155 units/L (30-135) H 02/07/19 11:34 < 0.010 ng/mL (0.00-0.029) 02/07/19 11:34 5.6 g/dL (6.3-8.2) L 02/08/19 06:13 2.6 g/dL (3.9-5) L 02/08/19 06:13 0.9 % 02/08/19 06:13 TSH 6.800 mlU/mL (0.270-4.200) H 02/07/19 12:57 HCG, Quant < 2 mIU/mL (0-4) 02/07/19 11:34 [place] (Yellow) 02/07/19 13:40 Cloudy (Clear) 02/07/19 13:40 5.0 (5.0-7.0) 02/07/19 13:40 Ur Specific [place] 1.019 (1.003-1.030) 02/07/19 13:40 <15 mg/dl mg/dL (Negative) 02/07/19 13:40 Neg mg/dL (Negative) 02/07/19 13:40 Neg mg/dL (Negative) 02/07/19 13:40 Neg (Negative) 02/07/19 13:40 Neg (Negative) 02/07/19 13:40 Neg (Negative) 02/07/19 13:40 2.0 mg/dL (<2.0) 02/07/19 13:40 Ur Leukocyte Esterase Neg (Negative) 02/07/19 13:40 3.0 /HPF (0.0-6.0) 02/07/19 13:40 2.0 /HPF (0.0-6.0) 02/07/19 13:40 U Epithel Cells (Auto) 1.0 /HPF (0-13.0) 02/07/19 13:40 1+ /HPF (Negative) 02/07/19 13:40 Few /HPF 02/07/19 13:40 None seen (None Seen) 02/07/19 18:50 285.6 mg/dL (0.1-20.0) H 02/07/19 18:50 10 mmol/L 02/07/19 13:40 73 mg/dL (5-11.8) H 02/07/19 18:50 Salicylates < 0.3 mg/dL (2.8-20.0) L 02/07/19 11:34 Acetaminophen < 5.0 ug/mL (10.0-30.0) L 02/07/19 11:34 Plasma/Serum Alcohol < 0.01 % (0-0.07) 02/07/19 11:34 19 IU/ml (0-13) H 02/07/19 12:57 HIV 1&2 Antibody Rapid Non react (Non React) 02/07/19 12:57 Non react (Non React) 02/07/19 12:57 Active Medications - Current Medications Current Medications: Generic Name Dose Route Start Last Admin Trade Name Freq PRN Reason Stop Dose Admin Acetaminophen 650 mg 02/07/19 14:21 Tylenol PO Q4H PRN Pain MILD(1-3)/Fever >100.5/PABON Diphenhydramine HCl 25 mg 02/07/19 14:26 02/08/19 03:59 Benadryl IV 25 mg Q6H PRN Administration Itching Famotidine 10 mg 02/07/19 15:00 02/07/19 23:21 Pepcid PO 10 mg BID CORNELIUS Administration Hydromorphone HCl 0.5 mg 02/07/19 14:21 Dilaudid IV Q3H PRN Pain , Severe (7-10) Sodium Chloride 1,000 mls @ 100 mls/hr 02/07/19 15:00 02/07/19 22:53 Nacl 0.9% 1000 Ml IV 100 mls/hr DIRECT CORNELIUS Administration Lacosamide 200 mg 02/07/19 23:30 02/08/19 00:29 Vimpat PO 200 mg BID CORNELIUS Administration Levetiracetam 1,000 mg 02/07/19 23:30 02/08/19 00:33 Keppra PO Not Given BID CORNELIUS Methylprednisolone Sodium Succinate 60 mg 02/07/19 15:00 02/08/19 05:56 Solu-Medrol IV 60 mg Q8HR CORNLEIUS Administration Metoclopramide HCl 5 mg 02/07/19 14:21 Reglan IV Q6H PRN Nausea And Vomiting Ondansetron HCl 4 mg 02/07/19 14:21 Zofran IV Q8H PRN Nausea And Vomiting Oxycodone/Acetaminophen 1 tab 02/07/19 14:21 02/07/19 18:05 Percocet 5/325 PO 1 tab Q6H PRN Administration Pain, Moderate (4-6) Sodium Chloride 10 ml 02/07/19 15:00 02/07/19 22:55 Sodium Chloride Flush Syringe 10 Ml IV 10 ml BID CORNELIUS Administration Sodium Chloride 10 ml 02/07/19 14:21 Sodium Chloride Flush Syringe 10 Ml IV PRN PRN LINE FLUSH
--- NOTE | 2019-02-08 09:51 | Progress Note ---
Assessment and Plan - Patient Problems (1) GOSIA (acute kidney injury) Current Visit: Yes Status: Acute Plan to address problem: acute kidney injury most likely secondary to pre-renal azotemia in the setting of acute allergic rash, vomiting/diarrhea. urine Na low supporting diagnosis of pre-renal azotemia. Renal function improving significantly on IVF, cont IV NS at 100ml/hr. check urine protein/cr ratio, urine eos, DOREEN, C3/4, RPR. avoid nephrotoxins, NSAIDs, IV contrast. strict I/Os. will monitor lytes and renal parameters closely and make further recommendations. (2) Eosinophilia Current Visit: Yes Status: Acute Plan to address problem: most likely associated with recent OTC meds. (3) Rash and other nonspecific skin eruption Current Visit: Yes Status: Acute Plan to address problem: most likely associated with recent OTC meds. pt is started on IV solumedrol/benadryl. DOREEN, C3/4, RPR pending (4) Lactic acidosis Current Visit: Yes Status: Acute Plan to address problem: trend lactic acid level. cont IV NS at 100ml/hr to maintain MAP > 65mmhg. Subjective Date of service: 02/08/19 Principal diagnosis: GOSIA Interval history: Patient awake, alert, in no acute respiratory distress, denies fever, chills, n/v/d Objective - Vital Signs Vital signs: Vital Signs - 12hr 02/07/19 23:01 Temperature 98.5 F Pulse Rate 99 H Respiratory 18 Rate Blood Pressure 109/48 O2 Sat by Pulse 95 Oximetry - General Appearance General appearance: well-developed, well-nourished, appears stated age, obese EENT: ATNC, PERRL, mucous membranes moist Neck: no JVD Respiratory: Present: Clear to Ascultation Cardiology: regular, S1S2 Gastrointestinal: normoactive bowel sounds Integumentary: rash Neurologic: no focal deficit, alert and oriented x3, strength 5/5, CN 3-[address] Psychiatric: mood/affect appropriate, cooperative - Lab 02/08/19 06:13 02/08/19 06:13 Most recent lab results Calcium 7.2 mg/dL (8.4-10.2) L 02/08/19 06:13 Magnesium 1.50 mg/dL (1.7-2.3) L 02/07/19 12:57 285.6 mg/dL (0.1-20.0) H 02/07/19 18:50 10 mmol/L 02/07/19 13:40 73 mg/dL (5-11.8) H 02/07/19 18:50 Medications & Allergies - Medications Allergies/Adverse Reactions: Allergies doxycycline Allergy (Verified 02/07/19 10:56) Rash Penicillins Allergy (Verified 02/07/19 10:56) Rash phenytoin [From Dilantin] Adverse Reaction (Verified 01/11/19 04:33) Unknown Home Medications: Home Medications Medication Instructions Recorded Confirmed Last Taken Type levETIRAcetam [Keppra TAB] 1,000 mg PO BID #60 tab 01/11/19 02/07/19 02/07/19 Rx Lacosamide [Vimpat] 200 mg PO BID 02/07/19 02/07/19 02/07/19 History Active Medications: Generic Name Dose Route Start Last Admin Trade Name Freq PRN Reason Stop Dose Admin Acetaminophen 650 mg 02/07/19 14:21 Tylenol PO Q4H PRN Pain MILD(1-3)/Fever >100.5/PABON Diphenhydramine HCl 25 mg 02/07/19 14:26 02/08/19 03:59 Benadryl IV 25 mg Q6H PRN Administration Itching Famotidine 10 mg 02/07/19 15:00 02/07/19 23:21 Pepcid PO 10 mg BID CORNELIUS Administration Hydromorphone HCl 0.5 mg 02/07/19 14:21 Dilaudid IV Q3H PRN Pain , Severe (7-10) Sodium Chloride 1,000 mls @ 100 mls/hr 02/07/19 15:00 02/07/19 22:53 Nacl 0.9% 1000 Ml IV 100 mls/hr DIRECT CONRELIUS Administration Lacosamide 200 mg 02/07/19 23:30 02/08/19 00:29 Vimpat PO 200 mg BID CORNELIUS Administration Levetiracetam 1,000 mg 02/07/19 23:30 02/08/19 00:33 Keppra PO Not Given BID CORNELIUS Methylprednisolone Sodium Succinate 60 mg 02/07/19 15:00 02/08/19 05:56 Solu-Medrol IV 60 mg Q8HR CORNELIUS Administration Metoclopramide HCl 5 mg 02/07/19 14:21 Reglan IV Q6H PRN Nausea And Vomiting Ondansetron HCl 4 mg 02/07/19 14:21 Zofran IV Q8H PRN Nausea And Vomiting Oxycodone/Acetaminophen 1 tab 02/07/19 14:21 02/07/19 18:05 Percocet 5/325 PO 1 tab Q6H PRN Administration Pain, Moderate (4-6) Sodium Chloride 10 ml 02/07/19 15:00 02/07/19 22:55 Sodium Chloride Flush Syringe 10 Ml IV 10 ml BID CORNELIUS Administration Sodium Chloride 10 ml 02/07/19 14:21 Sodium Chloride Flush Syringe 10 Ml IV PRN PRN LINE FLUSH
[2019-02-08] MEDS: PEPCID PO SCH ×2 (11:15→21:39)
[2019-02-08] MEDS: SODIUM CHLORIDE FLUSH SYRINGE 10 ML IV SCH ×2 (11:16→22:34)
[2019-02-08] MEDS: NACL 0.9% 1000 ML 1,000 ML IV SCH ×2 (11:30→21:38)
--- NOTE | 2019-02-08 13:19 | Consultation ---
History of Present Illness Consult date: 02/08/19 Reason for Consult: History of seizures, rash Chief complaint: History of seizures, rash History of present illness: Patient is a 48-year-old woman with a history of seizures, and bipolar disorder. She has been on Keppra and Vimpat for approximately 5-10 years. She states that her primary neurologist is at [place]. Patient presents with 3-4 day history of fatigue, rhinitis, generalized muscle aches, and sinus fullness. She states that she took an [id number] medication for rhinitis, however she does not recall the name of the medication. This was the first time that she try taking this medication. Patient states that after taking the medication, she noticed that she began to develop a rash which was generalized, and associated with generalized itching. She states that she's had a similar rash about 3 times over the past 2 years, and also notes that each time that the rash developed, it was related to starting a new medication. In the first time she developed this rash was about 2 years ago, and she recalls that she was started on a new medication for bipolar disorder at the time. As patient has been on Keppra and Vimpat for approximately 5 years, she notes that she is never noticed a temporal relation of rash with use of these seizure medications. She also states that her rash is now improving. Past History Past Medical History: other (bipolar disease, seizure disorder ) Past Surgical History: No surgical history Social history: lives with family. denies: smoking, alcohol abuse, prescription drug abuse, IV drug use Family history: no significant family history Medications and Allergies Allergies Allergy/AdvReac Type Severity Reaction Status Date / Time doxycycline Allergy Rash Verified 02/07/19 10:56 Penicillins Allergy Rash Verified 02/07/19 10:56 phenytoin [From Dilantin] AdvReac Unknown Verified 01/11/19 04:33 Home Medications Medication Instructions Recorded Confirmed Last Taken Type levETIRAcetam [Keppra TAB] 1,000 mg PO BID #60 tab 01/11/19 02/07/19 02/07/19 Rx Lacosamide [Vimpat] 200 mg PO BID 02/07/19 02/07/19 02/07/19 History Active Meds: Active Medications Acetaminophen (Tylenol) 650 mg PO Q4H PRN PRN Reason: Pain MILD(1-3)/Fever >100.5/PABON Diphenhydramine HCl (Benadryl) 25 mg IV Q6H PRN PRN Reason: Itching Last Admin: 02/08/19 03:59 Dose: 25 mg Documented by: Famotidine (Pepcid) 10 mg PO BID [facility] Last Admin: 02/08/19 11:15 Dose: 10 mg Documented by: Hydromorphone HCl (Dilaudid) 0.5 mg IV Q3H PRN PRN Reason: Pain , Severe (7-10) Sodium Chloride (Nacl 0.9% 1000 Ml) 1,000 mls @ 100 mls/hr IV DIRECT [facility] Last Admin: 02/08/19 11:30 Dose: 100 mls/hr Documented by: Lacosamide (Vimpat) 200 mg PO BID [facility] Last Admin: 02/08/19 11:15 Dose: 200 mg Documented by: Levetiracetam (Keppra) 1,000 mg PO BID [facility] Last Admin: 02/08/19 11:16 Dose: 1,000 mg Documented by: Methylprednisolone Sodium Succinate (Solu-Medrol) 60 mg IV Q8HR [facility] Last Admin: 02/08/19 05:56 Dose: 60 mg Documented by: Metoclopramide HCl (Reglan) 5 mg IV Q6H PRN PRN Reason: Nausea And Vomiting Ondansetron HCl (Zofran) 4 mg IV Q8H PRN PRN Reason: Nausea And Vomiting Oxycodone/Acetaminophen (Percocet 5/325) 1 tab PO Q6H PRN PRN Reason: Pain, Moderate (4-6) Last Admin: 02/07/19 18:05 Dose: 1 tab Documented by: Sodium Chloride (Sodium Chloride Flush Syringe 10 Ml) 10 ml IV BID [facility] Last Admin: 02/08/19 11:16 Dose: 10 ml Documented by: Sodium Chloride (Sodium Chloride Flush Syringe 10 Ml) 10 ml IV PRN PRN PRN Reason: LINE FLUSH Review of Systems All systems: negative Constitutional: fatigue, lethargy Ears, nose, mouth and throat: nasal congestion, nasal discharge Integumentary: rash Physical Examination - Vital Signs Vital Signs: Vital Signs Resp Pulse Ox 15 99 02/07/19 10:57 02/07/19 10:57 - Constitutional General appearance: comfortable - EENT EENT: Present: ATNC, PERRL, mucous membranes moist, hearing intact, vision intact - Respiratory Respiratory: Present: lungs clear, normal breath sounds - Cardiovascular Cardiovascular: Present: regular rate, normal S1, normal S2 Extremities: Present: no peripheral edema bilatateraly, no clubbing, cyanosis, other (noted to have rash on bilateral upper extremities) - Gastrointestinal Gastrointestinal: Present: normoactive bowel sounds, soft, non-tender - Integumentary Integumentary: Present: rash - Neurologic Cranial nerve examination: PERRL, EOMI, VFF, V1/V2/V3 grossly intact, face symmetric, tongue midline, intact shoulder shrug Speech examination: intact Sensorimotor examination: intact Detailed motor examination: full strength in all tyree Motor examination - right side: 5/5: biceps, triceps, wrist flexion, wrist extension, clinical lab scientist, hip flexors, knee extensors, dorsiflexion, toe extension (EHL), plantarflexion Motor examination - left side: 5/5: biceps, triceps, wrist flexion, wrist extension, clinical lab scientist, hip flexors, knee extensors, dorsiflexion, toe extension (EHL), plantarflexion Detailed sensory examination: intact, light touch Reflex and gait examination: intact Reflexes: 2+: ankle, bicep, knee, tricep - Musculoskeletal Musculoskeletal: Present: no fluid collection, normal range of motion - Psychiatric Psychiatric: Present: mood/affect appropriate Results - Laboratory Findings CBC and BMP: 02/08/19 06:13 02/08/19 06:13 Abnormal Lab Findings: Abnormal Labs 02/07/19 02/07/19 02/07/19 11:34 11:34 11:34 MCH 27 L RDW 16.3 H Eos % (Auto) 5.0 H Lymph # 1.1 L Seg Neutrophils % 74.5 H PT 16.2 H INR 1.34 H Sodium 125 L Chloride 84.6 L Carbon Dioxide 21 L BUN 32 H Creatinine 4.0 H Glucose 180 H POC Glucose Lactic Acid Calcium 7.6 L Magnesium Total Creatine Kinase Total Protein Albumin TSH Urine Creatinine Urine Total Protein Salicylates Acetaminophen Rheumatoid Factor 02/07/19 02/07/19 02/07/19 11:34 11:34 11:34 MCH RDW Eos % (Auto) Lymph # Seg Neutrophils % PT INR Sodium Chloride Carbon Dioxide BUN Creatinine Glucose POC Glucose Lactic Acid Calcium Magnesium Total Creatine Kinase 155 H Total Protein Albumin TSH Urine Creatinine Urine Total Protein Salicylates < 0.3 L Acetaminophen < 5.0 L Rheumatoid Factor 02/07/19 02/07/19 02/07/19 12:29 12:57 12:57 MCH RDW Eos % (Auto) Lymph # Seg Neutrophils % PT INR Sodium Chloride Carbon Dioxide BUN Creatinine Glucose POC Glucose 176 H Lactic Acid 2.70 H* Calcium Magnesium 1.50 L Total Creatine Kinase Total Protein 6.2 L Albumin 2.6 L TSH Urine Creatinine Urine Total Protein Salicylates Acetaminophen Rheumatoid Factor 02/07/19 02/07/19 02/07/19 12:57 12:57 13:40 MCH RDW Eos % (Auto) Lymph # Seg Neutrophils % PT INR Sodium Chloride Carbon Dioxide BUN Creatinine Glucose POC Glucose Lactic Acid Calcium Magnesium Total Creatine Kinase Total Protein Albumin TSH 6.800 H Urine Creatinine 329.5 H Urine Total Protein Salicylates Acetaminophen Rheumatoid Factor 19 H 02/07/19 02/07/19 02/08/19 18:50 20:12 06:13 MCH 27 L RDW 16.5 H Eos % (Auto) Lymph # 0.8 L Seg Neutrophils % 81.7 H PT INR Sodium Chloride Carbon Dioxide BUN Creatinine Glucose POC Glucose Lactic Acid 2.30 H* Calcium Magnesium Total Creatine Kinase Total Protein Albumin TSH Urine Creatinine 285.6 H Urine Total Protein 73 H Salicylates Acetaminophen Rheumatoid Factor 02/08/19 06:13 MCH RDW Eos % (Auto) Lymph # Seg Neutrophils % PT INR Sodium 132 L D Chloride 94.5 L Carbon Dioxide BUN 27 H Creatinine 1.7 H D Glucose 175 H POC Glucose Lactic Acid Calcium 7.2 L Magnesium Total Creatine Kinase Total Protein 5.6 L Albumin 2.6 L TSH Urine Creatinine Urine Total Protein Salicylates Acetaminophen Rheumatoid Factor Assessment and Plan Patient is a 48-year-old woman with a history of seizures, and bipolar disorder, who presents with reported history of runny nose, nasal congestion, generalized body aches, and developed a rash after taking a new OTC medication for rhinitis. According patient's clinical findings, it is likely that the new rash is due to the OTC medication which the patient was taking for the first time. Of note, the patient has had approximately 2 similar rashes in the past, and each previous rash was related to starting a new medication. The patient notes that she is not noted a rash after taking Keppra or Vimpat, and is tolerated these medications well in the past. Plan: 1.Rash: - Likely due to OTC alelrgy medication that was taken first time for rhinitis. Unlikely to be due to keppra or vimpat, as she has been taking these medications for 5-10 years, and has not noted a temporal relation of rash when taking these in the past. She states that previous times that she has developed a rash, it was when she started a new medication for bipolar d/o. - Recommend continue vimpat and keppra home doses. 2. GOSIA: - Nephrology following, Creatinine improving. 3. Lactic acidosis" - improving - Continue to manage per primary team - Will sign off. Please call with any questions. Shalom Beebe MD Neurology
[2019-02-09] MEDS: BENADRYL IV PRN (05:09)
[2019-02-09] MEDS: SOLU-Medrol IV SCH (05:09)
[2019-02-09] MEDS: NACL 0.9% 1000 ML 1,000 ML IV SCH (06:33)
[2019-02-09 07:03] LABS: Hematocrit 29.5 % (30.3-42.9); Hemoglobin 9.7 gm/dl (10.1-14.3); Mean Corpuscular HGB Conc 33 % (30-34); Mean Corpuscular Volume 81 fl (79-97); Platelet Count 270 K/mm3 (140-440); Red Blood Count 3.62 M/mm3 (3.65-5.03); Red Cell Distribution Width 16.5 % (13.2-15.2)
[2019-02-09 07:40] LABS: BUN/Creatinine Ratio 18; Blood Urea Nitrogen 14 mg/dL (7-17); Calcium 7.7 mg/dL (8.4-10.2); Hemolysis Index 3
--- NOTE | 2019-02-09 08:40 | Discharge Summary ---
Providers - Providers Date of Admission: 02/07/19 13:53 Date of discharge: 02/09/19 Attending physician: GRACE DORAN 02/07/19 Consult to Case Management [CONS] Routine Services Needed at Discharge: Home Health Services Notified:: COPY GIVEN TO 02/07/19 13:48 Consult to Physician [CONS] Urgent Comment: Consulting Provider: RADHA ROBLES Physician Instructions: Reason For Exam: gosia 02/08/19 08:01 Consult to Physician [CONS] Routine Comment: Consulting Provider: BRAYDEN APPIAH Physician Instructions: Reason For Exam: Seizure disorder,Vimpat/Keppra cause of ?allergies Primary care physician: [facility]D ARTIST Hospitalization Condition: Fair Disposition: DC-01 TO HOME OR SELFCARE - Discharge Diagnoses (1) Hyponatremia Status: Acute (2) Vasomotor nephropathy Status: Acute (3) Malnutrition Status: Acute Qualifiers: Protein-calorie malnutrition severity: severe (4) GOSIA (acute kidney injury) Status: Acute (5) Seizure disorder Status: Chronic Core Measure Documentation - Palliative Care Palliative Care/ Comfort Measures: Not Applicable - Core Measures Any of the following diagnoses?: none Exam - Constitutional Vitals: Temp Pulse Resp BP Pulse Ox 97.0 F L 82 16 110/59 95 02/09/19 05:55 02/09/19 05:55 02/09/19 05:55 02/09/19 05:55 02/09/19 05:55 Plan Activity: advance as tolerated Diet: low fat, low cholesterol, low salt Plan of Treatment: 1.Follow up with PCP in 1 week. 2.Follow up with Dr. Robles, Nephrology in 1 week Assessment: 1.GOSIA Follow up with: PRIMARY CARE, [Primary Care Provider] - 3-5 Days Prescriptions: diphenhydrAMINE [Benadryl CAP] 25 mg PO Q8HR #15 capsule Famotidine [Pepcid] 20 mg PO BID 7 Days tablet Prednisone [predniSONE 5 mg (6-Day Pack, 21 Tabs)] 5 mg PO .TAPER #1 tab.ds.pk
[2019-02-09] MEDS: PEPCID PO SCH (11:08)
[2019-02-09] MEDS: VIMPAT PO SCH (11:09)
[2019-02-09] MEDS: KEPPRA PO SCH (11:09)
[2019-02-09] MEDS: SODIUM CHLORIDE FLUSH SYRINGE 10 ML IV SCH (11:10)
--- NOTE | 2019-02-09 17:27 | Progress Note ---
Assessment and Plan - Patient Problems (1) GOSIA (acute kidney injury) Current Visit: Yes Status: Acute Plan to address problem: acute kidney injury most likely secondary to pre-renal azotemia in the setting of acute allergic rash, vomiting/diarrhea. urine Na low supporting diagnosis of pre-renal azotemia. Renal function improved significantly on IVF, stable for discharge from renal stand point. (2) Eosinophilia Current Visit: Yes Status: Acute Plan to address problem: most likely associated with recent OTC meds. (3) Rash and other nonspecific skin eruption Current Visit: Yes Status: Acute Plan to address problem: most likely associated with recent OTC meds. pt is started on IV solumedrol/benadryl. ODREEN, C3/4, RPR pending (4) Lactic acidosis Current Visit: Yes Status: Acute Plan to address problem: trend lactic acid level. cont IV NS at 100ml/hr to maintain MAP > 65mmhg. Subjective Date of service: 02/09/19 Principal diagnosis: GOSIA Interval history: Patient awake, alert, in no acute respiratory distress, denies fever, chills, n/v/d Objective - Vital Signs Vital signs: Vital Signs - 12hr 02/09/19 02/09/19 05:55 12:25 Temperature 97.0 F L 98.3 F Pulse Rate 82 78 Respiratory 16 22 Rate Blood Pressure 110/59 131/66 O2 Sat by Pulse 95 97 Oximetry - General Appearance General appearance: well-developed, well-nourished, appears stated age EENT: ATNC, PERRL, mucous membranes moist Neck: no JVD Respiratory: Present: Clear to Ascultation Cardiology: regular, S1S2 Gastrointestinal: normoactive bowel sounds Integumentary: no rash, other (no edema ) Neurologic: no focal deficit, alert and oriented x3, strength 5/5, CN 3-12 intact Psychiatric: mood/affect appropriate, cooperative - Lab 02/09/19 06:23 02/09/19 06:23 Most recent lab results Calcium 7.7 mg/dL (8.4-10.2) L 02/09/19 06:23 Magnesium 1.50 mg/dL (1.7-2.3) L 02/07/19 12:57 285.6 mg/dL (0.1-20.0) H 02/07/19 18:50 10 mmol/L 02/07/19 13:40 73 mg/dL (5-11.8) H 02/07/19 18:50 Medications & Allergies - Medications Allergies/Adverse Reactions: Allergies doxycycline Allergy (Verified 02/07/19 10:56) Rash Penicillins Allergy (Verified 02/07/19 10:56) Rash phenytoin [From Dilantin] Adverse Reaction (Verified 01/11/19 04:33) Unknown Home Medications: Home Medications Medication Instructions Recorded Confirmed Last Taken Type levETIRAcetam [Keppra TAB] 1,000 mg PO BID #60 tab 01/11/19 02/07/19 02/07/19 Rx Lacosamide [Vimpat] 200 mg PO BID 02/07/19 02/07/19 02/07/19 History Famotidine [Pepcid] 20 mg PO BID 7 Days tablet 02/09/19 Unknown Rx Prednisone [predniSONE 5 mg (6-Day 5 mg PO .TAPER #1 tab.ds.pk 02/09/19 Unknown Rx Pack, 21 Tabs)] diphenhydrAMINE [Benadryl CAP] 25 mg PO Q8HR #15 capsule 02/09/19 Unknown Rx Active Medications: Generic Name Dose Route Start Last Admin Trade Name Freq PRN Reason Stop Dose Admin Acetaminophen 650 mg 02/07/19 14:21 Tylenol PO Q4H PRN Pain MILD(1-3)/Fever >100.5/PABON Diphenhydramine HCl 25 mg 02/07/19 14:26 02/09/19 05:09 Benadryl IV 25 mg Q6H PRN Administration Itching Famotidine 10 mg 02/07/19 15:00 02/09/19 11:08 Pepcid PO 10 mg BID CORNELIUS Administration Hydromorphone HCl 0.5 mg 02/07/19 14:21 Dilaudid IV Q3H PRN Pain , Severe (7-10) Sodium Chloride 1,000 mls @ 100 mls/hr 02/07/19 15:00 02/09/19 06:33 Nacl 0.9% 1000 Ml IV 100 mls/hr DIRECT CORNELIUS Administration Lacosamide 200 mg 02/07/19 23:30 02/09/19 11:09 Vimpat PO 200 mg BID CORNELIUS Administration Levetiracetam 1,000 mg 02/07/19 23:30 02/09/19 11:09 Keppra PO 1,000 mg BID CORNELIUS Administration Methylprednisolone Sodium Succinate 60 mg 02/07/19 15:00 02/09/19 05:09 Solu-Medrol IV 60 mg Q8HR CORNELIUS Administration Metoclopramide HCl 5 mg 02/07/19 14:21 02/08/19 18:20 Reglan IV 5 mg Q6H PRN Administration Nausea And Vomiting Ondansetron HCl 4 mg 02/07/19 14:21 Zofran IV Q8H PRN Nausea And Vomiting Oxycodone/Acetaminophen 1 tab 02/07/19 14:21 02/07/19 18:05 Percocet 5/325 PO 1 tab Q6H PRN Administration Pain, Moderate (4-6) Sodium Chloride 10 ml 02/07/19 15:00 02/09/19 11:10 Sodium Chloride Flush Syringe 10 Ml IV 10 ml BID CORNELIUS Administration Sodium Chloride 10 ml 02/07/19 14:21 Sodium Chloride Flush Syringe 10 Ml IV PRN PRN LINE FLUSH
[2019-02-09 17:47] VITALS: BP 135/79
== END 2019-02-09 17:30 | disposition home or self-care (01) | DRG 682 ==
LOC: ED 10:28 → 3A 13:53
PROVIDERS: ADMIT Internal Medicine; ATTEND Internal Medicine
DX: N17.0 Acute kidney failure with tubular necrosis (principal); E43 Unspecified severe protein-calorie malnutrition; E87.1 Hypo-osmolality and hyponatremia; E87.2 Acidosis; Z68.41 Body mass index [BMI] 40.0-44.9, adult; R21 Rash and other nonspecific skin eruption; G40.909 Epilepsy, unspecified, not intractable, without status epilepticus; D72.1 Eosinophilia; T50.995A Adverse effect of other drugs, medicaments and biological substances, initial encounter; F41.9 Anxiety disorder, unspecified; Z88.0 Allergy status to penicillin; Z88.1 Allergy status to other antibiotic agents; Z79.899 Other long term (current) drug therapy; Z82.49 Family history of ischemic heart disease and other diseases of the circulatory system; Y92.89 Other specified places as the place of occurrence of the external cause
CPT/HCPCS: 36415; 51702; 80048; 80053; 80076; 80320; 81001; 82140; 82550; 82570; 82962; 83036; 83735; 84156; 84300; 84443; 84484; 84702; 85025; 85027; 85610; 85670; 85730; 86038; 86160; 86592; 86618; 87040; 87086; 87806; 89050; 93005; 93010; 96365; 96375; G0378; G0480; J1200; J2405; J2765; J2920; J2930; J3475; J7030

== ENCOUNTER 2019-02-14 11:11 | Inpatient (IN) | payer MEDICAID ==
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
--- NOTE | 2019-02-14 12:38 | XRay Report ---
CHEST 2 VIEWS INDICATION / CLINICAL INFORMATION: Dyspnea. COMPARISON: None available. FINDINGS: SUPPORT DEVICES: None. HEART / MEDIASTINUM: The heart size and pulmonary vasculature are normal. There is mild aortic tortuo sity without aneurysm. LUNGS / PLEURA: No significant pulmonary or pleural abnormality. No pneumothorax. ADDITIONAL FINDINGS: No significant additional findings. IMPRESSION: No acute findings. Signer Name: Danny Morel MD Signed: 02/14/2019 12:33 PM Workstation Name: [id number]
[2019-02-14 13:50] LABS: Alanine Aminotransferase 10 units/L (7-56); Albumin 3.4 g/dL (3.9-5); BUN/Creatinine Ratio 11; Blood Urea Nitrogen 8 mg/dL (7-17); Calcium 8.3 mg/dL (8.4-10.2); Hemolysis Index 5
[2019-02-14] MEDS ORDERED: K-DUR PO ONE (13:54)
[2019-02-14 13:56] LABS: Hematocrit 34.8 % (30.3-42.9); Hemoglobin 10.9 gm/dl (10.1-14.3); Mean Corpuscular HGB Conc 31 % (30-34); Mean Corpuscular Volume 83 fl (79-97); Platelet Count 247 K/mm3 (140-440); Red Blood Count 4.18 M/mm3 (3.65-5.03); Red Cell Distribution Width 17.3 % (13.2-15.2)
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
[2019-02-14] MEDS ORDERED: GEODON IM ONE ×2 (15:01→15:03)
[2019-02-14] MEDS ORDERED: WATER FOR INJ Sterile (PF) 10 ML ONE (15:01)
[2019-02-14] MEDS ORDERED: BENADRYL ONE (15:01)
[2019-02-14 15:03] LABS: Basophils % (Manual) 0 % (0.0-1.8); Total Cells Counted 100
[2019-02-14] MEDS ORDERED: BENADRYL IM ONE (15:03)
[2019-02-14 15:04] LABS: Schistocytes Few; Target Cells Rare
[2019-02-14 15:05] LABS: Platelet Estimate Consistent w Auto
[2019-02-14] MEDS ORDERED: HALDOL IM ONE (18:03)
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
[2019-02-14] MEDS ORDERED: PROVENTIL IH PRN (18:13)
[2019-02-14] MEDS ORDERED: ZOFRAN IV PRN (18:13)
[2019-02-14] MEDS ORDERED: SODIUM CHLORIDE FLUSH SYRINGE 10 ML IV PRN (18:13)
[2019-02-14] MEDS ORDERED: GEODON IM PRN (18:15)
[2019-02-14] MEDS ORDERED: ATIVAN IV PRN (18:15)
--- NOTE | 2019-02-14 20:03 | Cat Scan Report ---
CT HEAD WITHOUT CONTRAST INDICATION / CLINICAL INFORMATION: Altered mental status with confusion. TECHNIQUE: All CT scans at this location are performed using CT dose reduction for ALARA by means of automated e xposure control. COMPARISON: None available. FINDINGS: HEMORRHAGE: No evidence of intracranial hemorrhage or extra-axial fluid collection. EXTRA-AXIAL SPACES: Cortical sulci, sylvian fissures and basilar cisterns have an unremarkable appear ance. VENTRICULAR SYSTEM: The ventricular system is of normal size and configuration. CEREBRAL PARENCHYMA: No areas of abnormal brain parenchymal attenuation are identified. There is no i ndication of recent infarction. MIDLINE SHIFT OR HERNIATION: There is no mass effect. CEREBELLUM / BRAINSTEM: Brainstem and cerebellum have an unremarkable appearance. INTRACRANIAL VESSELS:No abnormalities are identified on this noncontrast head CT. ORBITS: visualized portions of the orbits have an unremarkable appearance. SOFT TISSUES of HEAD: No significant abnormality. CALVARIUM: Evaluation of bone windows reveals no abnormalities. PARANASAL SINUSES / MASTOID AIR CELLS: Paranasal sinuses are free from inflammatory mucosal disease. Mastoid air cells are normally pneumatized. IMPRESSION: 1. No intracranial abnormality on head CT without contrast. Signer Name: Lenard Dumont MD Signed: 02/14/2019 7:59 PM Workstation Name: [employer]
[2019-02-14 22:00] LABS: Bilirubin,Urine NEG (Negative); Blood,Urine NEG (Negative); Color,Urine Yellow (Yellow); Mucus,Urine FEW /HPF; Protein,Urine <15 mg/dL mg/dL (Negative); Urobilinogen,Urine < 2.0 mg/dL (<2.0)
[2019-02-14] MEDS ORDERED: NON-FORMULARY (Levetiracetam [Keppra Tab] 1,000 MG) PO SCH (22:00)
[2019-02-14] MEDS ORDERED: NON-FORMULARY (Lacosamide [Vimpat] 200 MG) PO SCH (22:00)
[2019-02-14 22:03] LABS: Amphetamine Screen,Urine PRESUMPTIVE NEGATIVE; Benzodiazepines Screen,Urine PRESUMPTIVE NEGATIVE; Cannabinoid Screen,Urine PRESUMPTIVE NEGATIVE; Cocaine Screen,Urine PRESUMPTIVE NEGATIVE; Methadone Screen,Urine PRESUMPTIVE NEGATIVE; Opiate Screen,Urine PRESUMPTIVE NEGATIVE
[2019-02-14] MEDS: PEPCID PO SCH (23:14)
[2019-02-14] MEDS: BENADRYL PO SCH (23:14)
[2019-02-14] MEDS: KEPPRA PO SCH (23:15)
[2019-02-14] MEDS: VIMPAT PO SCH (23:15)
[2019-02-14] MEDS: SODIUM CHLORIDE FLUSH SYRINGE 10 ML IV SCH (23:15)
[2019-02-14] MEDS ORDERED: NACL 0.9% 1000 ML 1,000 ML IV SCH (23:45)
[2019-02-15] MEDS: KEPPRA PO SCH ×2 (11:38→21:39)
[2019-02-15] MEDS: SODIUM CHLORIDE FLUSH SYRINGE 10 ML IV SCH ×2 (11:39→21:41)
[2019-02-15] MEDS: PEPCID PO SCH ×2 (11:39→21:39)
[2019-02-15] MEDS: BENADRYL PO SCH ×3 (11:39→21:39)
[2019-02-15] MEDS: VIMPAT PO SCH ×2 (11:39→21:39)
--- NOTE | 2019-02-15 12:14 | Progress Note ---
Assessment and Plan Assessment and plan: 48-year-old woman with history of seizures presents to the hospital after a verbal dispute with family members. She was brought in for altered mental status. Admitted to the hospital for suspected psychotic break Acute encephalopathy Psychosis Seizure disorder Leukocytosis with no signs of sepsis 1013, mental health consult pending UDS is negative Mild pyuria, highly doubt UTI, follow-up urine cultures, monitor off antibiotics Continue antiseizure medications DVT prophylaxis with Lovenox History Interval history: Per nursing staff patient has been yelling at them has been abusive. She has been refusing her meds and then later yelling at the nurses later for not giving her her meds. Review of systems Constitutional: No fevers, no malaise, no joint pains CVS: No chest pain, no orthopnea, no dyspnea on exertion, no pedal edema GI: No abdominal pain, no diarrhea, no vomiting, no constipation Respiratory: no wheezing, no coughing Hospitalist Physical - Physical exam Narrative exam: General.: Appears well, no distress, nontoxic HEENT: Moist mucous membranes, extraocular muscles intact, no lymphadenopathy Neck: supple Cardiac: S1-S2 heard Lungs: clear to auscultation bilaterally Abdomen: soft , nontender, nondistended, bowel sounds positive Extremities: no edema clubbing or cyanosis Skin: no rash or lesions Neurologic: no gross focal deficits Psych: Patient is agitated and disorganized - Constitutional Vitals: Temp Pulse Resp BP Pulse Ox 98.1 F 77 18 117/58 96 02/15/19 03:43 02/15/19 03:43 02/15/19 03:43 02/15/19 03:43 02/15/19 03:43 General appearance: Present: mild distress, obese Results - Labs CBC & Chem 7: 02/15/19 15:58 02/15/19 22:37 Labs: Laboratory Last Values WBC 22.0 K/mm3 (4.5-11.0) H 02/14/19 13:11 RBC 4.18 M/mm3 (3.65-5.03) 02/14/19 13:11 Hgb 10.9 gm/dl (10.1-14.3) 02/14/19 13:11 Hct 34.8 % (30.3-42.9) 02/14/19 13:11 MCV 83 fl (79-97) 02/14/19 13:11 MCH 26 pg (28-32) L 02/14/19 13:11 MCHC 31 % (30-34) 02/14/19 13:11 RDW 17.3 % (13.2-15.2) H 02/14/19 13:11 Plt Count 247 K/mm3 (140-440) 02/14/19 13:11 Lymph % (Auto) [employer] 02/14/19 13:11 [place] % (Auto) Logging [employer]visor 02/14/19 13:11 Eos % (Auto) [employer]ging [employer]visor 02/14/19 13:11 Baso % (Auto) [employer]ging [employer]visor 02/14/19 13:11 Lymph # Logging Supervisor 02/14/19 13:11 [place] # Logging Supervisor 02/14/19 13:11 Eos # Logging Supervisor 02/14/19 13:11 Baso # Logging Supervisor 02/14/19 13:11 Add Manual Diff Complete 02/14/19 13:11 Total Counted 100 02/14/19 13:11 Seg Neutrophils % Logging Supervisor 02/14/19 13:11 Seg Neuts % (Manual) 80.0 % (40.0-70.0) H 02/14/19 13:11 0 % 02/14/19 13:11 15.0 % (13.4-35.0) 02/14/19 13:11 Reactive Lymphs % (Man) 0 % 02/14/19 13:11 2.0 % (0.0-7.3) 02/14/19 13:11 2.0 % (0.0-4.3) 02/14/19 13:11 0 % (0.0-1.8) 02/14/19 13:11 1.0 % 02/14/19 13:11 0 % 02/14/19 13:11 0 % 02/14/19 13:11 0 % 02/14/19 13:11 Nucleated RBC % Not Reportable 02/14/19 13:11 Seg Neutrophils # [employer]ging Supervisor 02/14/19 13:11 Seg Neutrophils # Man 17.6 K/mm3 (1.8-7.7) H 02/14/19 13:11 Band Neutrophils # 0.0 K/mm3 02/14/19 13:11 3.3 K/mm3 (1.2-5.4) 02/14/19 13:11 Abs React Lymphs (Man) 0.0 K/mm3 02/14/19 13:11 0.4 K/mm3 (0.0-0.8) 02/14/19 13:11 0.4 K/mm3 (0.0-0.4) 02/14/19 13:11 0.0 K/mm3 (0.0-0.1) 02/14/19 13:11 0.2 K/mm3 02/14/19 13:11 0.0 K/mm3 02/14/19 13:11 0.0 K/mm3 02/14/19 13:11 Blast Cells # 0.0 K/mm3 02/14/19 13:11 WBC Morphology Not Reportable 02/14/19 13:11 Hypersegmented Neuts Not Reportable 02/14/19 13:11 Hyposegmented Neuts Not Reportable 02/14/19 13:11 Hypogranular Neuts Not Reportable 02/14/19 13:11 Not Reportable 02/14/19 13:11 Not Reportable 02/14/19 13:11 Not Reportable 02/14/19 13:11 Not Reportable 02/14/19 13:11 Not Reportable 02/14/19 13:11 Not Reportable 02/14/19 13:11 Consistent w auto 02/14/19 13:11 Not Reportable 02/14/19 13:11 Plt Clumps, EDTA Not Reportable 02/14/19 13:11 Not Reportable 02/14/19 13:11 Not Reportable 02/14/19 13:11 Not Reportable 02/14/19 13:11 Plt Morphology Comment Not Reportable 02/14/19 13:11 RBC Morphology Not Reportable 02/14/19 13:11 Dimorphic RBCs Not Reportable 02/14/19 13:11 Not Reportable 02/14/19 13:11 Not Reportable 02/14/19 13:11 Not Reportable 02/14/19 13:11 Not Reportable 02/14/19 13:11 Not Reportable 02/14/19 13:11 Not Reportable 02/14/19 13:11 Not Reportable 02/14/19 13:11 Not Reportable 02/14/19 13:11 Not Reportable 02/14/19 13:11 Rare 02/14/19 13:11 Not Reportable 02/14/19 13:11 Not Reportable 02/14/19 13:11 Not Reportable 02/14/19 13:11 Not Reportable 02/14/19 13:11 Not Reportable 02/14/19 13:11 Not Reportable 02/14/19 13:11 Not Reportable 02/14/19 13:11 Not Reportable 02/14/19 13:11 Not Reportable 02/14/19 13:11 Acanthocytes (Spur) Not Reportable 02/14/19 13:11 Rouleaux Not Reportable 02/14/19 13:11 Not Reportable 02/14/19 13:11 Few 02/14/19 13:11 Not Reportable 02/14/19 13:11 Not Reportable 02/14/19 13:11 Hem Pathologist Commnt No 02/14/19 13:11 VBG pH 7.410 (7.320-7.420) 02/14/19 16:41 Sodium 139 mmol/L (137-145) 02/14/19 13:11 Potassium 3.3 mmol/L (3.6-5.0) L 02/14/19 13:11 Chloride 99.9 mmol/L (98-107) 02/14/19 13:11 Carbon Dioxide 26 mmol/L (22-30) 02/14/19 13:11 16 mmol/L 02/14/19 13:11 BUN 8 mg/dL (7-17) 02/14/19 13:11 0.7 mg/dL (0.7-1.2) 02/14/19 13:11 Estimated GFR > 60 ml/min 02/14/19 13:11 11 % 02/14/19 13:11 Glucose 97 mg/dL (65-100) 02/14/19 13:11 Lactic Acid 0.90 mmol/L (0.7-2.0) 02/15/19 06:58 Calcium 8.3 mg/dL (8.4-10.2) L 02/14/19 13:11 Magnesium 2.20 mg/dL (1.7-2.3) 02/14/19 16:41 0.20 mg/dL (0.1-1.2) 02/14/19 13:11 AST 13 units/L (5-40) 02/14/19 13:11 ALT 10 units/L (7-56) 02/14/19 13:11 67 units/L (35-129) 02/14/19 13:11 7.2 g/dL (6.3-8.2) 02/14/19 13:11 3.4 g/dL (3.9-5) L 02/14/19 13:11 0.9 % 02/14/19 13:11 Yellow (Yellow) 02/14/19 21:38 Clear (Clear) 02/14/19 21:38 7.0 (5.0-7.0) 02/14/19 21:38 Ur Specific [place] 1.012 (1.003-1.030) 02/14/19 21:38 <15 mg/dl mg/dL (Negative) 02/14/19 21:38 Neg mg/dL (Negative) 02/14/19 21:38 Neg mg/dL (Negative) 02/14/19 21:38 Neg (Negative) 02/14/19 21:38 Neg (Negative) 02/14/19 21:38 Neg (Negative) 02/14/19 21:38 < 2.0 mg/dL (<2.0) 02/14/19 21:38 Ur Leukocyte Esterase Sm (Negative) 02/14/19 21:38 13.0 /HPF (0.0-6.0) H 02/14/19 21:38 2.0 /HPF (0.0-6.0) 02/14/19 21:38 U Epithel Cells (Auto) 1.0 /HPF (0-13.0) 02/14/19 21:38 Few /HPF 02/14/19 21:38 Few /HPF 02/14/19 21:38 Salicylates < 0.3 mg/dL (2.8-20.0) L 02/14/19 16:41 Presumptive negative 02/14/19 21:38 Presumptive negative 02/14/19 21:38 Acetaminophen < 5.0 ug/mL (10.0-30.0) L 02/14/19 16:41 Ur Barbiturates Screen Presumptive negative 02/14/19 21:38 Ur Phencyclidine Scrn Presumptive negative 02/14/19 21:38 Ur Amphetamines Screen Presumptive negative 02/14/19 21:38 U Benzodiazepines Scrn Presumptive negative 02/14/19 21:38 Presumptive negative 02/14/19 21:38 U Marijuana (THC) Screen Presumptive negative 02/14/19 21:38 Disclamer 02/14/19 21:38 Plasma/Serum Alcohol < 0.01 % (0-0.07) 02/14/19 16:41 Active Medications - Current Medications Current Medications: Generic Name Dose Route Start Last Admin Trade Name Ravindraq PRN Reason Stop Dose Admin Acetaminophen 650 mg 02/14/19 18:13 Tylenol PO Q4H PRN Pain MILD(1-3)/Fever >100.5/PABON Albuterol 2.5 mg 02/14/19 18:13 Proventil IH Q4HRT PRN Shortness Of Breath Diphenhydramine HCl 25 mg 02/14/19 22:00 02/15/19 11:39 Benadryl PO 25 mg Q8HR CORNELIUS Administration Famotidine 20 mg 02/14/19 22:00 02/15/19 11:39 Pepcid PO 20 mg BID CORNELIUS Administration Sodium Chloride 1,000 mls @ 125 mls/hr 02/14/19 23:45 Nacl 0.9% 1000 Ml IV DIRECT CORNELIUS Lacosamide 200 mg 02/14/19 22:00 02/15/19 11:39 Vimpat PO 200 mg BID CORNELIUS Administration Levetiracetam 1,000 mg 02/14/19 22:00 02/15/19 11:38 Keppra PO 1,000 mg BID CORNELIUS Administration Lorazepam 1 mg 02/14/19 18:15 Ativan IV Q4H PRN Agitation Ondansetron HCl 4 mg 02/14/19 18:13 Zofran IV Q8H PRN Nausea And Vomiting Sodium Chloride 10 ml 02/14/19 22:00 02/15/19 11:39 Sodium Chloride Flush Syringe 10 Ml IV Not Given BID CORNELIUS Sodium Chloride 10 ml 02/14/19 18:13 Sodium Chloride Flush Syringe 10 Ml IV PRN PRN LINE FLUSH Ziprasidone 10 mg 02/14/19 18:15 Geodon IM Q2H PRN Agitation
[2019-02-15 16:24] LABS: Mean Corpuscular HGB Conc 30 % (30-34); Mean Corpuscular Volume 90 fl (79-97); Platelet Count 320 K/mm3 (140-440); Red Blood Count 4.27 M/mm3 (3.65-5.03); Red Cell Distribution Width 18.2 % (13.2-15.2)
[2019-02-15 16:25] LABS: Hemoglobin 11.3 gm/dl (10.1-14.3)
[2019-02-15 16:26] LABS: Hematocrit 38.4 % (30.3-42.9)
[2019-02-15 17:22] LABS: RBC Morphology Normal; Total Cells Counted 100
[2019-02-15 17:52] LABS: BUN/Creatinine Ratio TNR; Blood Urea Nitrogen TNR mg/dL (7-17); Calcium TNR mg/dL (8.4-10.2)
[2019-02-15 17:53] LABS: Hemolysis Index TNR
[2019-02-15 23:19] LABS: BUN/Creatinine Ratio 7; Blood Urea Nitrogen 5 mg/dL (7-17); Calcium 7.7 mg/dL (8.4-10.2); Hemolysis Index 2
[2019-02-16] MEDS: BENADRYL PO SCH ×3 (05:42→22:00)
[2019-02-16] MEDS: KEPPRA PO SCH ×2 (11:41→23:16)
[2019-02-16] MEDS: PEPCID PO SCH ×2 (11:41→23:15)
[2019-02-16] MEDS: VIMPAT PO SCH ×2 (11:41→23:16)
[2019-02-16] MEDS: SODIUM CHLORIDE FLUSH SYRINGE 10 ML IV SCH ×2 (11:42→22:03)
--- NOTE | 2019-02-16 13:50 | Consultation ---
History of Present Illness - Reason for Consult Consult date: 02/16/19 Reason for consult: Mental Health Evaluation Requesting physician: NANCI SWEENEY - Chief Complaint Chief complaint: "People don't understand me" - History of Present Psychiatric Illness 48 y.o. AA female who presented to the Er for elevated WBC's. Psychiatry was consulted to see the patient for psychosis. Today the patient was calm wuth a circumstantial thought process. She was asked about her current hospital visit, she is adamant to discuss her previous admission for GOSIA instead. She had to be redirected several times to keep her on topic. She was asked about her action while in the ER, her answer wasn't logical (The patient ran ou t the ER and was brought back by security). She began talking about her seizure do referencing "people" always bother her about her seizure. She was tangent while discuss her seizures. She was able to state that she took psy medication and was a patient recently at a local mental health facility. She denies SI/HI's and AVH's. She denies erratic sleep and a poor appetite. She denies recreational drug use and alcohol consumption (etoh). Medications and Allergies Allergies Allergy/AdvReac Type Severity Reaction Status Date / Time doxycycline Allergy Rash Verified 02/07/19 10:56 Penicillins Allergy Rash Verified 02/07/19 10:56 phenytoin [From Dilantin] AdvReac Unknown Verified 01/11/19 04:33 Home Medications Medication Instructions Recorded Confirmed Last Taken Type levETIRAcetam [Keppra TAB] 1,000 mg PO BID #60 tab 01/11/19 02/14/19 02/07/19 Rx Lacosamide [Vimpat] 200 mg PO BID 02/07/19 02/14/19 02/07/19 History Famotidine [Pepcid] 20 mg PO BID 7 Days tablet 02/09/19 02/14/19 Unknown Rx Prednisone [predniSONE 5 mg (6-Day 5 mg PO .TAPER #1 tab.ds.pk 02/09/19 02/14/19 Unknown Rx Pack, 21 Tabs)] diphenhydrAMINE [Benadryl CAP] 25 mg PO Q8HR #15 capsule 02/09/19 02/14/19 Unknown Rx Active Meds: Active Medications Acetaminophen (Tylenol) 650 mg PO Q4H PRN PRN Reason: Pain MILD(1-3)/Fever >100.5/PABON Albuterol (Proventil) 2.5 mg IH Q4HRT PRN PRN Reason: Shortness Of Breath Diphenhydramine HCl (Benadryl) 25 mg PO Q8HR [facility] Last Admin: 02/16/19 05:42 Dose: 25 mg Documented by: Enoxaparin Sodium (Lovenox) 40 mg SUB-Q QDAY@2200 [facility] Famotidine (Pepcid) 20 mg PO BID [facility] Last Admin: 02/16/19 11:41 Dose: 20 mg Documented by: Sodium Chloride (Nacl 0.9% 1000 Ml) 1,000 mls @ 125 mls/hr IV DIRECT [facility] Lacosamide (Vimpat) 200 mg PO BID [facility] Last Admin: 02/16/19 11:41 Dose: 200 mg Documented by: Levetiracetam (Keppra) 1,000 mg PO BID [facility] Last Admin: 02/16/19 11:41 Dose: 1,000 mg Documented by: Lorazepam (Ativan) 1 mg IV Q4H PRN PRN Reason: Agitation Ondansetron HCl (Zofran) 4 mg IV Q8H PRN PRN Reason: Nausea And Vomiting Sodium Chloride (Sodium Chloride Flush Syringe 10 Ml) 10 ml IV BID [facility] Last Admin: 02/16/19 11:42 Dose: Not Given Documented by: Sodium Chloride (Sodium Chloride Flush Syringe 10 Ml) 10 ml IV PRN PRN PRN Reason: LINE FLUSH Ziprasidone (Geodon) 10 mg IM Q2H PRN PRN Reason: Agitation Past psychiatric history - Past Medical History Past Medical History: seizures Past Surgical History: No surgical history - past Psychiatric treatment and history psychiatric treatment history: Several inpatient psy settings in the past. Denies a fam psy hx. - Social History Social history: lives with family Mental Status Exam - Vital signs Last Vital Signs Temp 98.7 F 02/16/19 12:59 Pulse 88 02/16/19 12:59 Resp 18 02/16/19 12:59 BP 141/66 02/16/19 12:59 Pulse Ox 96 02/16/19 12:59 - Exam Narrative exam: MSE: Appearance: calm, cooperative Behavior: regular eye contact Speech: regular rate and tone Mood: labile Affect: congruent to mood Thought Process: circumstantial Thought Content: denies SI/HI's and AVH's, delusional, paranoia Motor Activity: laying in bed Cognition: A/O x3 Insight: poor Judgment: poor Results Result Diagrams: 02/15/19 15:58 02/15/19 22:37 Abnormal lab results 02/15/19 02/15/19 Range/Units 15:58 22:37 WBC 18.0 H (4.5-11.0) K/mm3 MCH 27 L (28-32) pg RDW 18.2 H (13.2-15.2) % Eosinophils % (Manual) 5.0 H (0.0-4.3) % Seg Neutrophils # Man 11.2 H (1.8-7.7) K/mm3 Monocytes # (Manual) 1.3 H (0.0-0.8) K/mm3 Eosinophils # (Manual) 0.9 H (0.0-0.4) K/mm3 Basophils # (Manual) 0.2 H (0.0-0.1) K/mm3 Potassium 3.4 L (3.6-5.0) mmol/L BUN 5 L (7-17) mg/dL Glucose 128 H (65-100) mg/dL Calcium 7.7 L (8.4-10.2) mg/dL All other labs normal. Assessment and Plan Assessment and plan: Impression: Unspecified Mood DO with psy features. Today the patient was calm during the assessment. DDx: Bipolar DO with psychosis, Schizophrenia Recommendation/Plan: Continue 1013 and start Zyprexa 5 mg PO HS for mood/psychosis. Discussed possible metabolic side effects with the patient reference Zyprexa, she verbalized understanding. Baseline Aic and Lipid panel ordered for the AM. Dispo: The patient will be referred to inpatient psy services once medically clear. Will staff with Dr Kenny Ernst.
--- NOTE | 2019-02-16 22:45 | Progress Note ---
Assessment and Plan Assessment and plan: 48-year-old woman with history of seizures presents to the hospital after a verbal dispute with family members. She was brought in for altered mental status. Admitted to the hospital for suspected psychotic break Acute encephalopathy Psychosis Seizure disorder Leukocytosis with no signs of sepsis 1013, mental health consult appreciated, meds started UDS is negative Mild pyuria, highly doubt UTI, follow-up urine cultures, monitor off antibiotics Continue antiseizure medications DVT prophylaxis with Lovenox she is medically optimized for inpt psy placement, can be dc from medicine standpoint History Interval history: has not been agitated today, has been calm and in good spirits since she was given the phone to talk to family members Review of systems Constitutional: No fevers, no malaise, no joint pains CVS: No chest pain, no orthopnea, no dyspnea on exertion, no pedal edema GI: No abdominal pain, no diarrhea, no vomiting, no constipation Respiratory: no wheezing, no coughing Hospitalist Physical - Physical exam Narrative exam: General.: Appears well, no distress, nontoxic HEENT: Moist mucous membranes, extraocular muscles intact, no lymphadenopathy Neck: supple Cardiac: S1-S2 heard Lungs: clear to auscultation bilaterally Abdomen: soft , nontender, nondistended, bowel sounds positive Extremities: no edema clubbing or cyanosis Skin: no rash or lesions Neurologic: no gross focal deficits Psych: Patient is calm and cooperative - Constitutional Vitals: Temp Pulse Resp BP Pulse Ox 98.0 F 99 H 16 126/68 99 02/16/19 19:48 02/16/19 19:48 02/16/19 19:48 02/16/19 19:48 02/16/19 19:48 General appearance: Present: mild distress, obese Results - Labs CBC & Chem 7: 02/15/19 15:58 02/15/19 22:37 Labs: Laboratory Last Values WBC 18.0 K/mm3 (4.5-11.0) H 02/15/19 15:58 RBC 4.27 M/mm3 (3.65-5.03) 02/15/19 15:58 Hgb 11.3 gm/dl (10.1-14.3) 02/15/19 15:58 Hct 38.4 % (30.3-42.9) 02/15/19 15:58 MCV 90 fl (79-97) 02/15/19 15:58 MCH 27 pg (28-32) L 02/15/19 15:58 MCHC 30 % (30-34) 02/15/19 15:58 RDW 18.2 % (13.2-15.2) H 02/15/19 15:58 Plt Count 320 K/mm3 (140-440) 02/15/19 15:58 Lymph % (Auto) [employer] 02/15/19 15:58 [place] % (Auto) [employer] 02/15/19 15:58 Eos % (Auto) [employer] 02/15/19 15:58 Baso % (Auto) [employer] 02/15/19 15:58 Lymph # [employer] 02/15/19 15:58 [place] # [employer] 02/15/19 15:58 Eos # [employer] 02/15/19 15:58 Baso # [employer] 02/15/19 15:58 Add Manual Diff Complete 02/15/19 15:58 Total Counted 100 02/15/19 15:58 Seg Neutrophils % [employer] 02/15/19 15:58 Seg Neuts % (Manual) 62.0 % (40.0-70.0) 02/15/19 15:58 0 % 02/15/19 15:58 25.0 % (13.4-35.0) 02/15/19 15:58 Reactive Lymphs % (Man) 0 % 02/15/19 15:58 7.0 % (0.0-7.3) 02/15/19 15:58 5.0 % (0.0-4.3) H 02/15/19 15:58 1.0 % (0.0-1.8) 02/15/19 15:58 0 % 02/15/19 15:58 0 % 02/15/19 15:58 0 % 02/15/19 15:58 0 % 02/15/19 15:58 Nucleated RBC % Not Reportable 02/15/19 15:58 Seg Neutrophils # [employer] 02/15/19 15:58 Seg Neutrophils # Man 11.2 K/mm3 (1.8-7.7) H 02/15/19 15:58 Band Neutrophils # 0.0 K/mm3 02/15/19 15:58 4.5 K/mm3 (1.2-5.4) 02/15/19 15:58 Abs React Lymphs (Man) 0.0 K/mm3 02/15/19 15:58 1.3 K/mm3 (0.0-0.8) H 02/15/19 15:58 0.9 K/mm3 (0.0-0.4) H 02/15/19 15:58 0.2 K/mm3 (0.0-0.1) H 02/15/19 15:58 0.0 K/mm3 02/15/19 15:58 0.0 K/mm3 02/15/19 15:58 0.0 K/mm3 02/15/19 15:58 Blast Cells # 0.0 K/mm3 02/15/19 15:58 WBC Morphology Not Reportable 02/15/19 15:58 Hypersegmented Neuts Not Reportable 02/15/19 15:58 Hyposegmented Neuts Not Reportable 02/15/19 15:58 Hypogranular Neuts Not Reportable 02/15/19 15:58 Not Reportable 02/15/19 15:58 Not Reportable 02/15/19 15:58 Not Reportable 02/15/19 15:58 Not Reportable 02/15/19 15:58 Not Reportable 02/15/19 15:58 Not Reportable 02/15/19 15:58 Not Reportable 02/15/19 15:58 Not Reportable 02/15/19 15:58 Plt Clumps, EDTA Not Reportable 02/15/19 15:58 Not Reportable 02/15/19 15:58 Not Reportable 02/15/19 15:58 Not Reportable 02/15/19 15:58 Plt Morphology Comment Not Reportable 02/15/19 15:58 RBC Morphology Normal 02/15/19 15:58 Dimorphic RBCs Not Reportable 02/15/19 15:58 Not Reportable 02/15/19 15:58 Not Reportable 02/15/19 15:58 Not Reportable 02/15/19 15:58 Not Reportable 02/15/19 15:58 Not Reportable 02/15/19 15:58 Not Reportable 02/15/19 15:58 Not Reportable 02/15/19 15:58 Not Reportable 02/15/19 15:58 Not Reportable 02/15/19 15:58 Not Reportable 02/15/19 15:58 Not Reportable 02/15/19 15:58 Not Reportable 02/15/19 15:58 Not Reportable 02/15/19 15:58 Not Reportable 02/15/19 15:58 Not Reportable 02/15/19 15:58 Not Reportable 02/15/19 15:58 Not Reportable 02/15/19 15:58 Not Reportable 02/15/19 15:58 Not Reportable 02/15/19 15:58 Acanthocytes (Spur) Not Reportable 02/15/19 15:58 Rouleaux Not Reportable 02/15/19 15:58 Not Reportable 02/15/19 15:58 Not Reportable 02/15/19 15:58 Not Reportable 02/15/19 15:58 Not Reportable 02/15/19 15:58 Hem Pathologist Commnt No 02/15/19 15:58 VBG pH 7.410 (7.320-7.420) 02/14/19 16:41 Sodium 141 mmol/L (137-145) 02/15/19 22:37 Potassium 3.4 mmol/L (3.6-5.0) L 02/15/19 22:37 Chloride 101.8 mmol/L (98-107) 02/15/19 22:37 Carbon Dioxide 27 mmol/L (22-30) 02/15/19 22:37 16 mmol/L 02/15/19 22:37 BUN 5 mg/dL (7-17) L 02/15/19 22:37 0.7 mg/dL (0.7-1.2) 02/15/19 22:37 Estimated GFR > 60 ml/min 02/15/19 22:37 7 % 02/15/19 22:37 Glucose 128 mg/dL (65-100) H 02/15/19 22:37 Lactic Acid 0.90 mmol/L (0.7-2.0) 02/15/19 06:58 Calcium 7.7 mg/dL (8.4-10.2) L 02/15/19 22:37 Phosphorus 3.10 mg/dL (2.5-4.5) 02/15/19 22:37 Magnesium 1.70 mg/dL (1.7-2.3) 02/15/19 22:37 0.20 mg/dL (0.1-1.2) 02/14/19 13:11 AST 13 units/L (5-40) 02/14/19 13:11 ALT 10 units/L (7-56) 02/14/19 13:11 67 units/L (35-129) 02/14/19 13:11 7.2 g/dL (6.3-8.2) 02/14/19 13:11 3.4 g/dL (3.9-5) L 02/14/19 13:11 0.9 % 02/14/19 13:11 Yellow (Yellow) 02/14/19 21:38 Clear (Clear) 02/14/19 21:38 7.0 (5.0-7.0) 02/14/19 21:38 Ur Specific [place] 1.012 (1.003-1.030) 02/14/19 21:38 <15 mg/dl mg/dL (Negative) 02/14/19 21:38 Neg mg/dL (Negative) 02/14/19 21:38 Neg mg/dL (Negative) 02/14/19 21:38 Neg (Negative) 02/14/19 21:38 Neg (Negative) 02/14/19 21:38 Neg (Negative) 02/14/19 21:38 < 2.0 mg/dL (<2.0) 02/14/19 21:38 Ur Leukocyte Esterase Sm (Negative) 02/14/19 21:38 13.0 /HPF (0.0-6.0) H 02/14/19 21:38 2.0 /HPF (0.0-6.0) 02/14/19 21:38 U Epithel Cells (Auto) 1.0 /HPF (0-13.0) 02/14/19 21:38 Few /HPF 02/14/19 21:38 Few /HPF 02/14/19 21:38 Salicylates < 0.3 mg/dL (2.8-20.0) L 02/14/19 16:41 Presumptive negative 02/14/19 21:38 Presumptive negative 02/14/19 21:38 Acetaminophen < 5.0 ug/mL (10.0-30.0) L 02/14/19 16:41 Ur Barbiturates Screen Presumptive negative 02/14/19 21:38 Ur Phencyclidine Scrn Presumptive negative 02/14/19 21:38 Ur Amphetamines Screen Presumptive negative 02/14/19 21:38 U Benzodiazepines Scrn Presumptive negative 02/14/19 21:38 Presumptive negative 02/14/19 21:38 U Marijuana (THC) Screen Presumptive negative 02/14/19 21:38 Disclamer 02/14/19 21:38 Plasma/Serum Alcohol < 0.01 % (0-0.07) 02/14/19 16:41 Active Medications - Current Medications Current Medications: Generic Name Dose Route Start Last Admin Trade Name Freq PRN Reason Stop Dose Admin Acetaminophen 650 mg 02/14/19 18:13 Tylenol PO Q4H PRN Pain MILD(1-3)/Fever >100.5/PABON Albuterol 2.5 mg 02/14/19 18:13 Proventil IH Q4HRT PRN Shortness Of Breath Diphenhydramine HCl 25 mg 02/14/19 22:00 02/16/19 13:55 Benadryl PO 25 mg Q8HR CORNELIUS Administration Enoxaparin Sodium 40 mg 02/16/19 22:00 Lovenox SUB-Q QDAY@2200 CORNELIUS Famotidine 20 mg 02/14/19 22:00 02/16/19 11:41 Pepcid PO 20 mg BID CORNELIUS Administration Sodium Chloride 1,000 mls @ 125 mls/hr 02/14/19 23:45 Nacl 0.9% 1000 Ml IV DIRECT CORNELIUS Lacosamide 200 mg 02/14/19 22:00 02/16/19 11:41 Vimpat PO 200 mg BID CORNELIUS Administration Levetiracetam 1,000 mg 02/14/19 22:00 02/16/19 11:41 Keppra PO 1,000 mg BID CORNELIUS Administration Lorazepam 1 mg 02/14/19 18:15 Ativan IV Q4H PRN Agitation Olanzapine 5 mg 02/16/19 22:00 Zyprexa PO HS CORNELIUS Ondansetron HCl 4 mg 02/14/19 18:13 Zofran IV Q8H PRN Nausea And Vomiting Sodium Chloride 10 ml 02/14/19 22:00 02/16/19 11:42 Sodium Chloride Flush Syringe 10 Ml IV Not Given BID CORNELIUS Sodium Chloride 10 ml 02/14/19 18:13 Sodium Chloride Flush Syringe 10 Ml IV PRN PRN LINE FLUSH Ziprasidone 10 mg 02/14/19 18:15 Geodon IM Q2H PRN Agitation
[2019-02-16] MEDS: LOVENOX SUB-Q SCH (23:15)
[2019-02-17 07:32] LABS: Chol/HDL Ratio 5.58 %
[2019-02-17] MEDS: BENADRYL PO SCH ×3 (07:34→22:00)
[2019-02-17] MEDS: KEPPRA PO SCH ×2 (09:47→21:55)
[2019-02-17] MEDS: VIMPAT PO SCH ×2 (09:48→21:55)
[2019-02-17] MEDS: PEPCID PO SCH ×2 (09:48→21:54)
[2019-02-17] MEDS: SODIUM CHLORIDE FLUSH SYRINGE 10 ML IV SCH ×2 (09:49→22:00)
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
--- NOTE | 2019-02-17 15:00 | Progress Note ---
Subjective - Reason for Consult Consult date: 02/17/19 Reason for consult: Psychiatry Follow-up - Chief Complaint Chief complaint: "I'm okay" 48 y.o. AA female who presented to the Er for elevated WBC's. Psychiatry was consulted to see the patient for psychosis. Today the patient was calm during the assessment. The patient still felt like "people" are bothering her even while she was eating her lunch. She was adamant to tell me she slept last night without me asked her. She denies SI/HI's and AVH's. No indications of side effects from her medication. Mental Status Exam - Vital signs Last Vital Signs Temp 98.3 F 02/17/19 12:03 Pulse 82 02/17/19 12:03 Resp 18 02/17/19 12:03 BP 136/74 02/17/19 12:03 Pulse Ox 100 02/17/19 12:03 - Exam Narrative exam: MSE: Appearance: calm, cooperative Behavior: regular eye contact Speech: regular rate and tone Mood: labile Affect: congruent to mood Thought Process: circumstantial Thought Content: denies SI/HI's and AVH's, delusional, paranoia Motor Activity: laying in bed Cognition: A/O x3 Insight: variable Judgment: variable Assessment and Plan Impression: Unspecified Mood DO with psy features. Today the patient was calm during the assessment. DDx: Bipolar DO with psychosis, Schizophrenia Recommendation/Plan: Continue 1013 and Zyprexa 5 mg PO HS for mood/psychosis. Discussed possible metabolic side effects with the patient reference Zyprexa, she verbalized understanding. Discussed with the patient proper diet and exercise. The patient's Lipid Panel was slightly abnormal.. Dispo: The patient was referred to inpatient psy services. Staffed with Dr Kenny Ernst.
[2019-02-17] MEDS: LOVENOX SUB-Q SCH (21:54)
[2019-02-18] MEDS: BENADRYL PO SCH ×3 (05:48→22:16)
[2019-02-18] MEDS: KEPPRA PO SCH ×2 (09:56→22:15)
[2019-02-18] MEDS: VIMPAT PO SCH ×2 (10:02→22:15)
[2019-02-18] MEDS: PEPCID PO SCH ×2 (10:03→22:16)
[2019-02-18] MEDS: SODIUM CHLORIDE FLUSH SYRINGE 10 ML IV SCH ×3 (10:32→22:22)
--- NOTE | 2019-02-18 15:51 | Progress Note ---
Assessment and Plan Assessment and plan: 48-year-old woman with history of seizures presents to the hospital after a verbal dispute with family members. She was brought in for altered mental status. Admitted to the hospital for suspected psychotic break Acute encephalopathy Psychosis Seizure disorder Leukocytosis with no signs of sepsis 1013, mental health consult appreciated, meds started UDS is negative Mild pyuria, highly doubt UTI, urine culture contaminated, monitor off antibiotics Continue antiseizure medications DVT prophylaxis with Lovenox she is medically optimized for inpt psy placement, can be dc from medicine standpoint History Interval history: has not been agitated today, has been calm and in good spirits since she was given the phone to talk to family members Review of systems Constitutional: No fevers, no malaise, no joint pains CVS: No chest pain, no orthopnea, no dyspnea on exertion, no pedal edema GI: No abdominal pain, no diarrhea, no vomiting, no constipation Respiratory: no wheezing, no coughing Hospitalist Physical - Physical exam Narrative exam: General.: Appears well, no distress, nontoxic HEENT: Moist mucous membranes, extraocular muscles intact, no lymphadenopathy Neck: supple Cardiac: S1-S2 heard Lungs: clear to auscultation bilaterally Abdomen: soft , nontender, nondistended, bowel sounds positive Extremities: no edema clubbing or cyanosis Skin: no rash or lesions Neurologic: no gross focal deficits Psych: Patient is calm and cooperative - Constitutional Vitals: Temp Pulse Resp BP Pulse Ox 97.9 F 86 16 155/85 99 02/18/19 05:54 02/18/19 05:54 02/18/19 05:54 02/18/19 05:54 02/18/19 05:54 General appearance: Present: mild distress, obese Results - Labs CBC & Chem 7: 02/18/19 19:31 02/18/19 19:31 Labs: Laboratory Last Values WBC 18.0 K/mm3 (4.5-11.0) H 02/15/19 15:58 RBC 4.27 M/mm3 (3.65-5.03) 02/15/19 15:58 Hgb 11.3 gm/dl (10.1-14.3) 02/15/19 15:58 Hct 38.4 % (30.3-42.9) 02/15/19 15:58 MCV 90 fl (79-97) 02/15/19 15:58 MCH 27 pg (28-32) L 02/15/19 15:58 MCHC 30 % (30-34) 02/15/19 15:58 RDW 18.2 % (13.2-15.2) H 02/15/19 15:58 Plt Count 320 K/mm3 (140-440) 02/15/19 15:58 Lymph % (Auto) Seam Closer 02/15/19 15:58 [place] % (Auto) Seam Closer 02/15/19 15:58 Eos % (Auto) Seam Closer 02/15/19 15:58 Baso % (Auto) Seam Closer 02/15/19 15:58 Lymph # Seam Closer 02/15/19 15:58 [place] # Seam Closer 02/15/19 15:58 Eos # Seam Closer 02/15/19 15:58 Baso # Seam Closer 02/15/19 15:58 Add Manual Diff Complete 02/15/19 15:58 Total Counted 100 02/15/19 15:58 Seg Neutrophils % Seam Closer 02/15/19 15:58 Seg Neuts % (Manual) 62.0 % (40.0-70.0) 02/15/19 15:58 0 % 02/15/19 15:58 25.0 % (13.4-35.0) 02/15/19 15:58 Reactive Lymphs % (Man) 0 % 02/15/19 15:58 7.0 % (0.0-7.3) 02/15/19 15:58 5.0 % (0.0-4.3) H 02/15/19 15:58 1.0 % (0.0-1.8) 02/15/19 15:58 0 % 02/15/19 15:58 0 % 02/15/19 15:58 0 % 02/15/19 15:58 0 % 02/15/19 15:58 Nucleated RBC % Not Reportable 02/15/19 15:58 Seg Neutrophils # Seam Closer 02/15/19 15:58 Seg Neutrophils # Man 11.2 K/mm3 (1.8-7.7) H 02/15/19 15:58 Band Neutrophils # 0.0 K/mm3 02/15/19 15:58 4.5 K/mm3 (1.2-5.4) 02/15/19 15:58 Abs React Lymphs (Man) 0.0 K/mm3 02/15/19 15:58 1.3 K/mm3 (0.0-0.8) H 02/15/19 15:58 0.9 K/mm3 (0.0-0.4) H 02/15/19 15:58 0.2 K/mm3 (0.0-0.1) H 02/15/19 15:58 0.0 K/mm3 02/15/19 15:58 0.0 K/mm3 02/15/19 15:58 0.0 K/mm3 02/15/19 15:58 Blast Cells # 0.0 K/mm3 02/15/19 15:58 WBC Morphology Not Reportable 02/15/19 15:58 Hypersegmented Neuts Not Reportable 02/15/19 15:58 Hyposegmented Neuts Not Reportable 02/15/19 15:58 Hypogranular Neuts Not Reportable 02/15/19 15:58 Not Reportable 02/15/19 15:58 Not Reportable 02/15/19 15:58 Not Reportable 02/15/19 15:58 Not Reportable 02/15/19 15:58 Not Reportable 02/15/19 15:58 Not Reportable 02/15/19 15:58 Not Reportable 02/15/19 15:58 Not Reportable 02/15/19 15:58 Plt Clumps, EDTA Not Reportable 02/15/19 15:58 Not Reportable 02/15/19 15:58 Not Reportable 02/15/19 15:58 Not Reportable 02/15/19 15:58 Plt Morphology Comment Not Reportable 02/15/19 15:58 RBC Morphology Normal 02/15/19 15:58 Dimorphic RBCs Not Reportable 02/15/19 15:58 Not Reportable 02/15/19 15:58 Not Reportable 02/15/19 15:58 Not Reportable 02/15/19 15:58 Not Reportable 02/15/19 15:58 Not Reportable 02/15/19 15:58 Not Reportable 02/15/19 15:58 Not Reportable 02/15/19 15:58 Not Reportable 02/15/19 15:58 Not Reportable 02/15/19 15:58 Not Reportable 02/15/19 15:58 Not Reportable 02/15/19 15:58 Not Reportable 02/15/19 15:58 Not Reportable 02/15/19 15:58 Not Reportable 02/15/19 15:58 Not Reportable 02/15/19 15:58 Not Reportable 02/15/19 15:58 Not Reportable 02/15/19 15:58 Not Reportable 02/15/19 15:58 Not Reportable 02/15/19 15:58 Acanthocytes (Spur) Not Reportable 02/15/19 15:58 Rouleaux Not Reportable 02/15/19 15:58 Not Reportable 02/15/19 15:58 Not Reportable 02/15/19 15:58 Not Reportable 02/15/19 15:58 Not Reportable 02/15/19 15:58 Hem Pathologist Commnt No 02/15/19 15:58 VBG pH 7.410 (7.320-7.420) 02/14/19 16:41 Sodium 141 mmol/L (137-145) 02/15/19 22:37 Potassium 3.4 mmol/L (3.6-5.0) L 02/15/19 22:37 Chloride 101.8 mmol/L (98-107) 02/15/19 22:37 Carbon Dioxide 27 mmol/L (22-30) 02/15/19 22:37 16 mmol/L 02/15/19 22:37 BUN 5 mg/dL (7-17) L 02/15/19 22:37 0.7 mg/dL (0.7-1.2) 02/15/19 22:37 Estimated GFR > 60 ml/min 02/15/19 22:37 7 % 02/15/19 22:37 Glucose 128 mg/dL (65-100) H 02/15/19 22:37 5.9 % (4-6) 02/17/19 06:55 Lactic Acid 0.90 mmol/L (0.7-2.0) 02/15/19 06:58 Calcium 7.7 mg/dL (8.4-10.2) L 02/15/19 22:37 Phosphorus 3.10 mg/dL (2.5-4.5) 02/15/19 22:37 Magnesium 1.70 mg/dL (1.7-2.3) 02/15/19 22:37 0.20 mg/dL (0.1-1.2) 02/14/19 13:11 AST 13 units/L (5-40) 02/14/19 13:11 ALT 10 units/L (7-56) 02/14/19 13:11 67 units/L (35-129) 02/14/19 13:11 7.2 g/dL (6.3-8.2) 02/14/19 13:11 3.4 g/dL (3.9-5) L 02/14/19 13:11 0.9 % 02/14/19 13:11 Triglycerides 151 mg/dL (2-149) H 02/17/19 06:55 Cholesterol 201 mg/dL (50-199) H 02/17/19 06:55 137 mg/dL (50-130) H 02/17/19 06:55 36 mg/dL (40-59) L 02/17/19 06:55 5.58 % 02/17/19 06:55 Yellow (Yellow) 02/14/19 21:38 Clear (Clear) 02/14/19 21:38 7.0 (5.0-7.0) 02/14/19 21:38 Ur Specific [place] 1.012 (1.003-1.030) 02/14/19 21:38 <15 mg/dl mg/dL (Negative) 02/14/19 21:38 Neg mg/dL (Negative) 02/14/19 21:38 Neg mg/dL (Negative) 02/14/19 21:38 Neg (Negative) 02/14/19 21:38 Neg (Negative) 02/14/19 21:38 Neg (Negative) 02/14/19 21:38 < 2.0 mg/dL (<2.0) 02/14/19 21:38 Ur Leukocyte Esterase Sm (Negative) 02/14/19 21:38 13.0 /HPF (0.0-6.0) H 02/14/19 21:38 2.0 /HPF (0.0-6.0) 02/14/19 21:38 U Epithel Cells (Auto) 1.0 /HPF (0-13.0) 02/14/19 21:38 Few /HPF 02/14/19 21:38 Few /HPF 02/14/19 21:38 Salicylates < 0.3 mg/dL (2.8-20.0) L 02/14/19 16:41 Presumptive negative 02/14/19 21:38 Presumptive negative 02/14/19 21:38 Acetaminophen < 5.0 ug/mL (10.0-30.0) L 02/14/19 16:41 Ur Barbiturates Screen Presumptive negative 02/14/19 21:38 Ur Phencyclidine Scrn Presumptive negative 02/14/19 21:38 Ur Amphetamines Screen Presumptive negative 02/14/19 21:38 U Benzodiazepines Scrn Presumptive negative 02/14/19 21:38 Presumptive negative 02/14/19 21:38 U Marijuana (THC) Screen Presumptive negative 02/14/19 21:38 Disclamer 02/14/19 21:38 Plasma/Serum Alcohol < 0.01 % (0-0.07) 02/14/19 16:41 Active Medications - Current Medications Current Medications: Generic Name Dose Route Start Last Admin Trade Name Freq PRN Reason Stop Dose Admin Acetaminophen 650 mg 02/14/19 18:13 Tylenol PO Q4H PRN Pain MILD(1-3)/Fever >100.5/PABON Albuterol 2.5 mg 02/14/19 18:13 Proventil IH Q4HRT PRN Shortness Of Breath Diphenhydramine HCl 25 mg 02/14/19 22:00 02/18/19 15:06 Benadryl PO Not Given Q8HR CORNELIUS Enoxaparin Sodium 40 mg 02/16/19 22:00 02/17/19 21:54 Lovenox SUB-Q 40 mg QDAY@2200 CORNELIUS Administration Famotidine 20 mg 02/14/19 22:00 02/18/19 10:03 Pepcid PO 20 mg BID CORNELIUS Administration Sodium Chloride 1,000 mls @ 125 mls/hr 02/14/19 23:45 Nacl 0.9% 1000 Ml IV DIRECT CORNELIUS Lacosamide 200 mg 02/14/19 22:00 02/18/19 10:02 Vimpat PO 200 mg BID CORNELIUS Administration Levetiracetam 1,000 mg 02/14/19 22:00 02/18/19 09:56 Keppra PO 1,000 mg BID CORNELIUS Administration Lorazepam 1 mg 02/14/19 18:15 Ativan IV Q4H PRN Agitation Olanzapine 5 mg 02/16/19 22:00 02/17/19 21:55 Zyprexa PO 5 mg HS CORNELIUS Administration Ondansetron HCl 4 mg 02/14/19 18:13 Zofran IV Q8H PRN Nausea And Vomiting Sodium Chloride 10 ml 02/14/19 22:00 02/18/19 10:32 Sodium Chloride Flush Syringe 10 Ml IV Not Given BID CORNELIUS Sodium Chloride 10 ml 02/14/19 18:13 Sodium Chloride Flush Syringe 10 Ml IV PRN PRN LINE FLUSH Ziprasidone 10 mg 02/14/19 18:15 Geodon IM Q2H PRN Agitation
--- NOTE | 2019-02-18 19:08 | Progress Note ---
Subjective - Reason for Consult Consult date: 02/18/19 Reason for consult: follow up - Chief Complaint Chief complaint: "Hi" 48 y.o. AA female who presented to the Er for elevated WBC's. Psychiatry was consulted to see the patient for psychosis. Today the patient was calm during the assessment. she states she is "jittery" today. Otherwise, she has no complaints. She says she does not think inpatient treatment would be helpful. She denies SI/HI's and AVH's. No indications of side effects from her medication. Mental Status Exam - Vital signs Last Vital Signs Temp 98.1 F 02/18/19 15:50 Pulse 89 02/18/19 15:50 Resp 18 02/18/19 15:50 BP 121/64 02/18/19 15:50 Pulse Ox 97 02/18/19 15:50 - Exam Narrative exam: MSE: Appearance: calm, cooperative Behavior: regular eye contact Speech: regular rate and tone Mood: labile Affect: congruent to mood Thought Process: circumstantial Thought Content: denies SI/HI's and AVH's, delusional, paranoia Motor Activity: laying in bed Cognition: A/O x3 Insight: variable Judgment: variable Assessment and Plan Impression: Unspecified Mood DO with psy features. Today the patient was calm during the assessment. DDx: Bipolar DO with psychosis, Schizophrenia Recommendation/Plan: Continue 1013 and Zyprexa 5 mg PO HS for mood/psychosis. Discussed possible metabolic side effects with the patient reference Zyprexa, she verbalized understanding. Dispo: The patient was referred to inpatient psy services. Staffed with Dr Kenny Ernst.
[2019-02-18 19:50] LABS: Hematocrit 34.8 % (30.3-42.9); Hemoglobin 11.3 gm/dl (10.1-14.3); Red Blood Count 4.27 M/mm3 (3.65-5.03)
[2019-02-18 19:51] LABS: Mean Platelet Volume 7.5 fl (6-12); Red Cell Distribution Width 16.8 % (13.2-15.2)
[2019-02-18 20:03] LABS: BUN/Creatinine Ratio 6; Blood Urea Nitrogen 5 mg/dL (7-17); Calcium 8.1 mg/dL (8.4-10.2); Hemolysis Index 13
[2019-02-18 21:01] LABS: HCG Qualitative,Urine Negative (Negative)
[2019-02-18 21:07] LABS: Bacteria,Urine 1+ /HPF (Negative); Bilirubin,Urine NEG (Negative); Blood,Urine NEG (Negative); Color,Urine Yellow (Yellow); Protein,Urine <15 mg/dL mg/dL (Negative); Urobilinogen,Urine < 2.0 mg/dL (<2.0)
[2019-02-18 21:09] LABS: Amphetamine Screen,Urine PRESUMPTIVE NEGATIVE; Benzodiazepines Screen,Urine PRESUMPTIVE NEGATIVE; Cannabinoid Screen,Urine PRESUMPTIVE NEGATIVE; Cocaine Screen,Urine PRESUMPTIVE NEGATIVE; Methadone Screen,Urine PRESUMPTIVE NEGATIVE; Opiate Screen,Urine PRESUMPTIVE NEGATIVE
[2019-02-18] MEDS: LOVENOX SUB-Q SCH (22:15)
[2019-02-19] MEDS: BENADRYL PO SCH ×3 (05:58→23:06)
[2019-02-19] MEDS: TYLENOL PO PRN ×2 (06:04→15:21)
[2019-02-19] MEDS: VIMPAT PO SCH ×2 (11:52→23:06)
[2019-02-19] MEDS: PEPCID PO SCH ×2 (11:52→23:06)
[2019-02-19] MEDS: KEPPRA PO SCH ×2 (11:52→23:05)
[2019-02-19] MEDS: SODIUM CHLORIDE FLUSH SYRINGE 10 ML IV SCH ×2 (11:53→23:07)
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
--- NOTE | 2019-02-19 17:57 | Progress Note ---
Assessment and Plan Assessment and plan: 48-year-old woman with history of seizures presents to the hospital after a verbal dispute with family members. She was brought in for altered mental status. Admitted to the hospital for suspected psychotic break Acute encephalopathy Psychosis Seizure disorder Leukocytosis with no signs of sepsis 1013, mental health consult appreciated, meds started UDS is negative Mild pyuria, highly doubt UTI, urine culture contaminated, monitor off antibiotics Continue antiseizure medications DVT prophylaxis with Lovenox she is medically optimized for inpt psy placement, can be dc from medicine standpoint History Interval history: has not been agitated today, has been calm and in good spirits since she was given the phone to talk to family members Review of systems Constitutional: No fevers, no malaise, no joint pains CVS: No chest pain, no orthopnea, no dyspnea on exertion, no pedal edema GI: No abdominal pain, no diarrhea, no vomiting, no constipation Respiratory: no wheezing, no coughing Hospitalist Physical - Physical exam Narrative exam: General.: Appears well, no distress, nontoxic HEENT: Moist mucous membranes, extraocular muscles intact, no lymphadenopathy Neck: supple Cardiac: S1-S2 heard Lungs: clear to auscultation bilaterally Abdomen: soft , nontender, nondistended, bowel sounds positive Extremities: no edema clubbing or cyanosis Skin: no rash or lesions Neurologic: no gross focal deficits Psych: Patient is calm and cooperative - Constitutional Vitals: Temp Pulse Resp BP Pulse Ox 97.9 F 78 18 118/60 96 02/19/19 11:20 02/19/19 11:20 02/19/19 11:20 02/19/19 11:20 02/19/19 11:20 General appearance: Present: mild distress, obese Results - Labs CBC & Chem 7: 02/18/19 19:31 02/18/19 19:31 Labs: Laboratory Last Values WBC 10.3 K/mm3 (4.5-11.0) 02/18/19 19:31 RBC 4.27 M/mm3 (3.65-5.03) 02/18/19 19:31 Hgb 11.3 gm/dl (10.1-14.3) 02/18/19 19:31 Hct 34.8 % (30.3-42.9) 02/18/19 19:31 MCV 81 fl (79-97) 02/18/19 19:31 MCH 26 pg (28-32) L 02/18/19 19:31 MCHC 33 % (30-34) 02/18/19 19:31 RDW 16.8 % (13.2-15.2) H 02/18/19 19:31 Plt Count 344 K/mm3 (140-440) 02/18/19 19:31 Lymph % (Auto) Morning Babysitter 02/15/19 15:58 [place] % (Auto) Morning Babysitter 02/15/19 15:58 Eos % (Auto) Morning Babysitter 02/15/19 15:58 Baso % (Auto) Morning Babysitter 02/15/19 15:58 Lymph # Morning Babysitter 02/15/19 15:58 [place] # Morning Babysitter 02/15/19 15:58 Eos # Morning Babysitter 02/15/19 15:58 Baso # Morning Babysitter 02/15/19 15:58 Add Manual Diff Complete 02/15/19 15:58 Total Counted 100 02/15/19 15:58 Seg Neutrophils % Morning Babysitter 02/15/19 15:58 Seg Neuts % (Manual) 62.0 % (40.0-70.0) 02/15/19 15:58 0 % 02/15/19 15:58 25.0 % (13.4-35.0) 02/15/19 15:58 Reactive Lymphs % (Man) 0 % 02/15/19 15:58 7.0 % (0.0-7.3) 02/15/19 15:58 5.0 % (0.0-4.3) H 02/15/19 15:58 1.0 % (0.0-1.8) 02/15/19 15:58 0 % 02/15/19 15:58 0 % 02/15/19 15:58 0 % 02/15/19 15:58 0 % 02/15/19 15:58 Nucleated RBC % Not Reportable 02/15/19 15:58 Seg Neutrophils # Morning Babysitter 02/15/19 15:58 Seg Neutrophils # Man 11.2 K/mm3 (1.8-7.7) H 02/15/19 15:58 Band Neutrophils # 0.0 K/mm3 02/15/19 15:58 4.5 K/mm3 (1.2-5.4) 02/15/19 15:58 Abs React Lymphs (Man) 0.0 K/mm3 02/15/19 15:58 1.3 K/mm3 (0.0-0.8) H 02/15/19 15:58 0.9 K/mm3 (0.0-0.4) H 02/15/19 15:58 0.2 K/mm3 (0.0-0.1) H 02/15/19 15:58 0.0 K/mm3 02/15/19 15:58 0.0 K/mm3 02/15/19 15:58 0.0 K/mm3 02/15/19 15:58 Blast Cells # 0.0 K/mm3 02/15/19 15:58 WBC Morphology Not Reportable 02/15/19 15:58 Hypersegmented Neuts Not Reportable 02/15/19 15:58 Hyposegmented Neuts Not Reportable 02/15/19 15:58 Hypogranular Neuts Not Reportable 02/15/19 15:58 Not Reportable 02/15/19 15:58 Not Reportable 02/15/19 15:58 Not Reportable 02/15/19 15:58 Not Reportable 02/15/19 15:58 Not Reportable 02/15/19 15:58 Not Reportable 02/15/19 15:58 Not Reportable 02/15/19 15:58 Not Reportable 02/15/19 15:58 Plt Clumps, EDTA Not Reportable 02/15/19 15:58 Not Reportable 02/15/19 15:58 Not Reportable 02/15/19 15:58 Not Reportable 02/15/19 15:58 Plt Morphology Comment Not Reportable 02/15/19 15:58 RBC Morphology Normal 02/15/19 15:58 Dimorphic RBCs Not Reportable 02/15/19 15:58 Not Reportable 02/15/19 15:58 Not Reportable 02/15/19 15:58 Not Reportable 02/15/19 15:58 Not Reportable 02/15/19 15:58 Not Reportable 02/15/19 15:58 Not Reportable 02/15/19 15:58 Not Reportable 02/15/19 15:58 Not Reportable 02/15/19 15:58 Not Reportable 02/15/19 15:58 Not Reportable 02/15/19 15:58 Not Reportable 02/15/19 15:58 Not Reportable 02/15/19 15:58 Not Reportable 02/15/19 15:58 Not Reportable 02/15/19 15:58 Not Reportable 02/15/19 15:58 Not Reportable 02/15/19 15:58 Not Reportable 02/15/19 15:58 Not Reportable 02/15/19 15:58 Not Reportable 02/15/19 15:58 Acanthocytes (Spur) Not Reportable 02/15/19 15:58 Rouleaux Not Reportable 02/15/19 15:58 Not Reportable 02/15/19 15:58 Not Reportable 02/15/19 15:58 Not Reportable 02/15/19 15:58 Not Reportable 02/15/19 15:58 Hem Pathologist Commnt No 02/15/19 15:58 VBG pH 7.410 (7.320-7.420) 02/14/19 16:41 Sodium 137 mmol/L (137-145) 02/18/19 19:31 Potassium 3.8 mmol/L (3.6-5.0) 02/18/19 19:31 Chloride 101.4 mmol/L (98-107) 02/18/19 19:31 Carbon Dioxide 25 mmol/L (22-30) 02/18/19 19:31 14 mmol/L 02/18/19 19:31 BUN 5 mg/dL (7-17) L 02/18/19 19:31 0.8 mg/dL (0.7-1.2) 02/18/19 19:31 Estimated GFR > 60 ml/min 02/18/19 19:31 6 % 02/18/19 19:31 Glucose 154 mg/dL (65-100) H 02/18/19 19:31 5.9 % (4-6) 02/17/19 06:55 Lactic Acid 0.90 mmol/L (0.7-2.0) 02/15/19 06:58 Calcium 8.1 mg/dL (8.4-10.2) L 02/18/19 19:31 Phosphorus 3.10 mg/dL (2.5-4.5) 02/15/19 22:37 Magnesium 1.70 mg/dL (1.7-2.3) 02/15/19 22:37 0.20 mg/dL (0.1-1.2) 02/14/19 13:11 AST 13 units/L (5-40) 02/14/19 13:11 ALT 10 units/L (7-56) 02/14/19 13:11 67 units/L (35-129) 02/14/19 13:11 7.2 g/dL (6.3-8.2) 02/14/19 13:11 3.4 g/dL (3.9-5) L 02/14/19 13:11 0.9 % 02/14/19 13:11 Triglycerides 151 mg/dL (2-149) H 02/17/19 06:55 Cholesterol 201 mg/dL (50-199) H 02/17/19 06:55 137 mg/dL (50-130) H 02/17/19 06:55 36 mg/dL (40-59) L 02/17/19 06:55 5.58 % 02/17/19 06:55 Yellow (Yellow) 02/18/19 19:21 Slightly-cloudy (Clear) 02/18/19 19:21 7.0 (5.0-7.0) 02/18/19 19:21 Ur Specific [place] 1.015 (1.003-1.030) 02/18/19 19:21 <15 mg/dl mg/dL (Negative) 02/18/19 19:21 Neg mg/dL (Negative) 02/18/19 19:21 Neg mg/dL (Negative) 02/18/19 19:21 Neg (Negative) 02/18/19 19:21 Pos (Negative) 02/18/19 19:21 Ur Reducing Substances Not Reportable 02/18/19 19:21 Neg (Negative) 02/18/19 19:21 Not Reportable 02/18/19 19:21 < 2.0 mg/dL (<2.0) 02/18/19 19:21 Ur Leukocyte Esterase Tr (Negative) 02/18/19 19:21 14.0 /HPF (0.0-6.0) H 02/18/19 19:21 2.0 /HPF (0.0-6.0) 02/18/19 19:21 U Epithel Cells (Auto) 3.0 /HPF (0-13.0) 02/18/19 19:21 1+ /HPF (Negative) 02/18/19 19:21 Few /HPF 02/14/19 21:38 Few /HPF 02/14/19 21:38 Urine HCG, Qual Negative (Negative) 02/18/19 19:21 Salicylates < 0.3 mg/dL (2.8-20.0) L 02/14/19 16:41 Presumptive negative 02/18/19 19:21 Presumptive negative 02/18/19 19:21 Acetaminophen < 5.0 ug/mL (10.0-30.0) L 02/14/19 16:41 Ur Barbiturates Screen Presumptive negative 02/18/19 19:21 Ur Phencyclidine Scrn Presumptive negative 02/18/19 19:21 Ur Amphetamines Screen Presumptive negative 02/18/19 19:21 U Benzodiazepines Scrn Presumptive negative 02/18/19 19:21 Presumptive negative 02/18/19 19:21 U Marijuana (THC) Screen Presumptive negative 02/18/19 19:21 Disclamer 02/18/19 19:21 Plasma/Serum Alcohol < 0.01 % (0-0.07) 02/14/19 16:41 Active Medications - Current Medications Current Medications: Generic Name Dose Route Start Last Admin Trade Name Freq PRN Reason Stop Dose Admin Acetaminophen 650 mg 02/14/19 18:13 02/19/19 15:21 Tylenol PO 650 mg Q4H PRN Administration Pain MILD(1-3)/Fever >100.5/PABON Albuterol 2.5 mg 02/14/19 18:13 Proventil IH Q4HRT PRN Shortness Of Breath Diphenhydramine HCl 25 mg 02/14/19 22:00 02/19/19 15:21 Benadryl PO 25 mg Q8HR CORNELIUS Administration Enoxaparin Sodium 40 mg 02/16/19 22:00 02/18/19 22:15 Lovenox SUB-Q 40 mg QDAY@2200 CORNELIUS Administration Famotidine 20 mg 02/14/19 22:00 02/19/19 11:52 Pepcid PO 20 mg BID CORNELIUS Administration Sodium Chloride 1,000 mls @ 125 mls/hr 02/14/19 23:45 Nacl 0.9% 1000 Ml IV DIRECT CORNELIUS Lacosamide 200 mg 02/14/19 22:00 02/19/19 11:52 Vimpat PO 200 mg BID CORNELIUS Administration Levetiracetam 1,000 mg 02/14/19 22:00 02/19/19 11:52 Keppra PO 1,000 mg BID CORNELIUS Administration Lorazepam 1 mg 02/14/19 18:15 Ativan IV Q4H PRN Agitation Olanzapine 5 mg 02/16/19 22:00 02/18/19 22:16 Zyprexa PO 5 mg HS CORNELIUS Administration Ondansetron HCl 4 mg 02/14/19 18:13 Zofran IV Q8H PRN Nausea And Vomiting Sodium Chloride 10 ml 02/14/19 22:00 02/19/19 11:53 Sodium Chloride Flush Syringe 10 Ml IV Not Given BID CORNELIUS Sodium Chloride 10 ml 02/14/19 18:13 Sodium Chloride Flush Syringe 10 Ml IV PRN PRN LINE FLUSH Ziprasidone 10 mg 02/14/19 18:15 Geodon IM Q2H PRN Agitation
[2019-02-19] MEDS: LOVENOX SUB-Q SCH (23:07)
[2019-02-20] MEDS: BENADRYL PO SCH ×2 (05:37→14:00)
[2019-02-20] MEDS ORDERED: ALUM-MAG HYDROX-SIMETH 200-200-20MG/5ML PO STA (07:03)
--- NOTE | 2019-02-20 07:43 | Progress Note ---
Assessment and Plan Assessment and plan: 48-year-old woman with history of seizures presents to the hospital after a verbal dispute with family members. She was brought in for altered mental status. Admitted to the hospital for suspected psychotic break Acute encephalopathy Psychosis Seizure disorder Leukocytosis with no signs of sepsis 1013, mental health consult appreciated, meds started UDS is negative Mild pyuria, highly doubt UTI, urine culture contaminated, monitor off antibiotics Continue antiseizure medications DVT prophylaxis with Lovenox she is medically optimized for inpt psy placement, can be dc from medicine standpoint History Interval history: has not been agitated today, has been calm and in good spirits since she was given the phone to talk to family members Review of systems Constitutional: No fevers, no malaise, no joint pains CVS: No chest pain, no orthopnea, no dyspnea on exertion, no pedal edema GI: No abdominal pain, no diarrhea, no vomiting, no constipation Respiratory: no wheezing, no coughing Hospitalist Physical - Physical exam Narrative exam: General.: Appears well, no distress, nontoxic HEENT: Moist mucous membranes, extraocular muscles intact, no lymphadenopathy Neck: supple Cardiac: S1-S2 heard Lungs: clear to auscultation bilaterally Abdomen: soft , nontender, nondistended, bowel sounds positive Extremities: no edema clubbing or cyanosis Skin: no rash or lesions Neurologic: no gross focal deficits Psych: Patient is calm and cooperative - Constitutional Vitals: Temp Pulse Resp BP Pulse Ox 98.5 F 70 16 104/53 95 02/20/19 06:10 02/20/19 06:10 02/20/19 06:10 02/20/19 06:10 02/20/19 06:10 General appearance: Present: mild distress, obese Results - Labs CBC & Chem 7: 02/18/19 19:31 02/18/19 19:31 Labs: Laboratory Last Values WBC 10.3 K/mm3 (4.5-11.0) 02/18/19 19:31 RBC 4.27 M/mm3 (3.65-5.03) 02/18/19 19:31 Hgb 11.3 gm/dl (10.1-14.3) 02/18/19 19:31 Hct 34.8 % (30.3-42.9) 02/18/19 19:31 MCV 81 fl (79-97) 02/18/19 19:31 MCH 26 pg (28-32) L 02/18/19 19:31 MCHC 33 % (30-34) 02/18/19 19:31 RDW 16.8 % (13.2-15.2) H 02/18/19 19:31 Plt Count 344 K/mm3 (140-440) 02/18/19 19:31 Lymph % (Auto) Recreation Worker 02/15/19 15:58 [place] % (Auto) Recreation Worker 02/15/19 15:58 Eos % (Auto) Recreation Worker 02/15/19 15:58 Baso % (Auto) Recreation Worker 02/15/19 15:58 Lymph # Recreation Worker 02/15/19 15:58 [place] # Recreation Worker 02/15/19 15:58 Eos # Recreation Worker 02/15/19 15:58 Baso # Recreation Worker 02/15/19 15:58 Add Manual Diff Complete 02/15/19 15:58 Total Counted 100 02/15/19 15:58 Seg Neutrophils % Recreation Worker 02/15/19 15:58 Seg Neuts % (Manual) 62.0 % (40.0-70.0) 02/15/19 15:58 0 % 02/15/19 15:58 25.0 % (13.4-35.0) 02/15/19 15:58 Reactive Lymphs % (Man) 0 % 02/15/19 15:58 7.0 % (0.0-7.3) 02/15/19 15:58 5.0 % (0.0-4.3) H 02/15/19 15:58 1.0 % (0.0-1.8) 02/15/19 15:58 0 % 02/15/19 15:58 0 % 02/15/19 15:58 0 % 02/15/19 15:58 0 % 02/15/19 15:58 Nucleated RBC % Not Reportable 02/15/19 15:58 Seg Neutrophils # Recreation Worker 02/15/19 15:58 Seg Neutrophils # Man 11.2 K/mm3 (1.8-7.7) H 02/15/19 15:58 Band Neutrophils # 0.0 K/mm3 02/15/19 15:58 4.5 K/mm3 (1.2-5.4) 02/15/19 15:58 Abs React Lymphs (Man) 0.0 K/mm3 02/15/19 15:58 1.3 K/mm3 (0.0-0.8) H 02/15/19 15:58 0.9 K/mm3 (0.0-0.4) H 02/15/19 15:58 0.2 K/mm3 (0.0-0.1) H 02/15/19 15:58 0.0 K/mm3 02/15/19 15:58 0.0 K/mm3 02/15/19 15:58 0.0 K/mm3 02/15/19 15:58 Blast Cells # 0.0 K/mm3 02/15/19 15:58 WBC Morphology Not Reportable 02/15/19 15:58 Hypersegmented Neuts Not Reportable 02/15/19 15:58 Hyposegmented Neuts Not Reportable 02/15/19 15:58 Hypogranular Neuts Not Reportable 02/15/19 15:58 Not Reportable 02/15/19 15:58 Not Reportable 02/15/19 15:58 Not Reportable 02/15/19 15:58 Not Reportable 02/15/19 15:58 Not Reportable 02/15/19 15:58 Not Reportable 02/15/19 15:58 Not Reportable 02/15/19 15:58 Not Reportable 02/15/19 15:58 Plt Clumps, EDTA Not Reportable 02/15/19 15:58 Not Reportable 02/15/19 15:58 Not Reportable 02/15/19 15:58 Not Reportable 02/15/19 15:58 Plt Morphology Comment Not Reportable 02/15/19 15:58 RBC Morphology Normal 02/15/19 15:58 Dimorphic RBCs Not Reportable 02/15/19 15:58 Not Reportable 02/15/19 15:58 Not Reportable 02/15/19 15:58 Not Reportable 02/15/19 15:58 Not Reportable 02/15/19 15:58 Not Reportable 02/15/19 15:58 Not Reportable 02/15/19 15:58 Not Reportable 02/15/19 15:58 Not Reportable 02/15/19 15:58 Not Reportable 02/15/19 15:58 Not Reportable 02/15/19 15:58 Not Reportable 02/15/19 15:58 Not Reportable 02/15/19 15:58 Not Reportable 02/15/19 15:58 Not Reportable 02/15/19 15:58 Not Reportable 02/15/19 15:58 Not Reportable 02/15/19 15:58 Not Reportable 02/15/19 15:58 Not Reportable 02/15/19 15:58 Not Reportable 02/15/19 15:58 Acanthocytes (Spur) Not Reportable 02/15/19 15:58 Rouleaux Not Reportable 02/15/19 15:58 Not Reportable 02/15/19 15:58 Not Reportable 02/15/19 15:58 Not Reportable 02/15/19 15:58 Not Reportable 02/15/19 15:58 Hem Pathologist Commnt No 02/15/19 15:58 VBG pH 7.410 (7.320-7.420) 02/14/19 16:41 Sodium 137 mmol/L (137-145) 02/18/19 19:31 Potassium 3.8 mmol/L (3.6-5.0) 02/18/19 19:31 Chloride 101.4 mmol/L (98-107) 02/18/19 19:31 Carbon Dioxide 25 mmol/L (22-30) 02/18/19 19:31 14 mmol/L 02/18/19 19:31 BUN 5 mg/dL (7-17) L 02/18/19 19:31 0.8 mg/dL (0.7-1.2) 02/18/19 19:31 Estimated GFR > 60 ml/min 02/18/19 19:31 6 % 02/18/19 19:31 Glucose 154 mg/dL (65-100) H 02/18/19 19:31 5.9 % (4-6) 02/17/19 06:55 Lactic Acid 0.90 mmol/L (0.7-2.0) 02/15/19 06:58 Calcium 8.1 mg/dL (8.4-10.2) L 02/18/19 19:31 Phosphorus 3.10 mg/dL (2.5-4.5) 02/15/19 22:37 Magnesium 1.70 mg/dL (1.7-2.3) 02/15/19 22:37 0.20 mg/dL (0.1-1.2) 02/14/19 13:11 AST 13 units/L (5-40) 02/14/19 13:11 ALT 10 units/L (7-56) 02/14/19 13:11 67 units/L (35-129) 02/14/19 13:11 7.2 g/dL (6.3-8.2) 02/14/19 13:11 3.4 g/dL (3.9-5) L 02/14/19 13:11 0.9 % 02/14/19 13:11 Triglycerides 151 mg/dL (2-149) H 02/17/19 06:55 Cholesterol 201 mg/dL (50-199) H 02/17/19 06:55 137 mg/dL (50-130) H 02/17/19 06:55 36 mg/dL (40-59) L 02/17/19 06:55 5.58 % 02/17/19 06:55 Yellow (Yellow) 02/18/19 19:21 Slightly-cloudy (Clear) 02/18/19 19:21 7.0 (5.0-7.0) 02/18/19 19:21 Ur Specific [place] 1.015 (1.003-1.030) 02/18/19 19:21 <15 mg/dl mg/dL (Negative) 02/18/19 19:21 Neg mg/dL (Negative) 02/18/19 19:21 Neg mg/dL (Negative) 02/18/19 19:21 Neg (Negative) 02/18/19 19:21 Pos (Negative) 02/18/19 19:21 Ur Reducing Substances Not Reportable 02/18/19 19:21 Neg (Negative) 02/18/19 19:21 Not Reportable 02/18/19 19:21 < 2.0 mg/dL (<2.0) 02/18/19 19:21 Ur Leukocyte Esterase Tr (Negative) 02/18/19 19:21 14.0 /HPF (0.0-6.0) H 02/18/19 19:21 2.0 /HPF (0.0-6.0) 02/18/19 19:21 U Epithel Cells (Auto) 3.0 /HPF (0-13.0) 02/18/19 19:21 1+ /HPF (Negative) 02/18/19 19:21 Few /HPF 02/14/19 21:38 Few /HPF 02/14/19 21:38 Urine HCG, Qual Negative (Negative) 02/18/19 19:21 Salicylates < 0.3 mg/dL (2.8-20.0) L 02/14/19 16:41 Presumptive negative 02/18/19 19:21 Presumptive negative 02/18/19 19:21 Acetaminophen < 5.0 ug/mL (10.0-30.0) L 02/14/19 16:41 Ur Barbiturates Screen Presumptive negative 02/18/19 19:21 Ur Phencyclidine Scrn Presumptive negative 02/18/19 19:21 Ur Amphetamines Screen Presumptive negative 02/18/19 19:21 U Benzodiazepines Scrn Presumptive negative 02/18/19 19:21 Presumptive negative 02/18/19 19:21 U Marijuana (THC) Screen Presumptive negative 02/18/19 19:21 Disclamer 02/18/19 19:21 Plasma/Serum Alcohol < 0.01 % (0-0.07) 02/14/19 16:41 Active Medications - Current Medications Current Medications: Generic Name Dose Route Start Last Admin Trade Name Freq PRN Reason Stop Dose Admin Acetaminophen 650 mg 02/14/19 18:13 02/19/19 15:21 Tylenol PO 650 mg Q4H PRN Administration Pain MILD(1-3)/Fever >100.5/PABON Albuterol 2.5 mg 02/14/19 18:13 Proventil IH Q4HRT PRN Shortness Of Breath Diphenhydramine HCl 25 mg 02/14/19 22:00 02/20/19 05:37 Benadryl PO 25 mg Q8HR CORNELIUS Administration Enoxaparin Sodium 40 mg 02/16/19 22:00 02/19/19 23:07 Lovenox SUB-Q 40 mg QDAY@2200 CORNELIUS Administration Famotidine 20 mg 02/14/19 22:00 02/19/19 23:06 Pepcid PO 20 mg BID CORNELIUS Administration Sodium Chloride 1,000 mls @ 125 mls/hr 02/14/19 23:45 Nacl 0.9% 1000 Ml IV DIRECT CORNELIUS Lacosamide 200 mg 02/14/19 22:00 02/19/19 23:06 Vimpat PO 200 mg BID CORNELIUS Administration Levetiracetam 1,000 mg 02/14/19 22:00 02/19/19 23:05 Keppra PO 1,000 mg BID CORNELIUS Administration Lorazepam 1 mg 02/14/19 18:15 Ativan IV Q4H PRN Agitation Olanzapine 5 mg 02/16/19 22:00 02/19/19 23:05 Zyprexa PO 5 mg HS CORNELIUS Administration Ondansetron HCl 4 mg 02/14/19 18:13 Zofran IV Q8H PRN Nausea And Vomiting Sodium Chloride 10 ml 02/14/19 22:00 02/19/19 23:07 Sodium Chloride Flush Syringe 10 Ml IV 10 ml BID CORNELIUS Administration Sodium Chloride 10 ml 02/14/19 18:13 Sodium Chloride Flush Syringe 10 Ml IV PRN PRN LINE FLUSH Ziprasidone 10 mg 02/14/19 18:15 Geodon IM Q2H PRN Agitation
--- NOTE | 2019-02-20 08:45 | Progress Note ---
Subjective - Reason for Consult Consult date: 02/20/19 Reason for consult: Pyschiatry Follow-up - Chief Complaint Chief complaint: "I feel better" 48 y.o. AA female who presented to the Er for elevated WBC's. Psychiatry was consulted to see the patient for psychosis. Today the patient was sandeep;m and cooperative during the assessment. The patient is more organized. She is concerned that she may not be able to return home. She stated that her actuions in the ER on her initial arrival to the hospital was unsafe. She denies SI/HI's and AVH's. She denies any side effects from her medications. Mental Status Exam - Vital signs Last Vital Signs Temp 98.5 F 02/20/19 06:10 Pulse 70 02/20/19 06:10 Resp 16 02/20/19 06:10 BP 104/53 02/20/19 06:10 Pulse Ox 95 02/20/19 06:10 - Exam Narrative exam: MSE: Appearance: calm, cooperative Behavior: regular eye contact Speech: regular rate and tone Mood: "better" Affect: congruent to mood Thought Process: more organized Thought Content: denies SI/HI's and AVH's Motor Activity: laying in bed Cognition: A/O x3 Insight: fair Judgment: appropriate Assessment and Plan Impression: Unspecified Mood DO with psy features. No overt psychosis with the patient. Today the patient was calm during the assessment. DDx: Bipolar DO with psychosis, Schizophrenia Recommendation/Plan: Rescind 1013. Continue Zyprexa 5 mg PO HS for mood/psychosis. Discussed possible metabolic side effects with the patient reference Zyprexa, she verbalized understanding. Discussed with the patient proper diet and exercise. The patient's Lipid Panel was slightly abnormal. Case Mgmt involvement, the patient may need assistance with placement. Dispo: The patient can follow up with [facility] for outpatient psy servi davy. Staffed with Dr Kenny Ernst.
[2019-02-20] MEDS: KEPPRA PO SCH (09:12)
[2019-02-20] MEDS: VIMPAT PO SCH (09:12)
[2019-02-20] MEDS: PEPCID PO SCH (09:13)
[2019-02-20] MEDS: SODIUM CHLORIDE FLUSH SYRINGE 10 ML IV SCH (09:13)
[2019-02-20] MEDS: TYLENOL PO PRN (10:37)
--- NOTE | 2019-02-20 11:21 | Discharge Summary ---
Providers - Providers Date of Admission: 02/14/19 18:13 Attending physician: NANCI SWEENEY MD 02/14/19 13:32 Consult to Case Management [CONS] Urgent Services Needed at Discharge: Real Estate Lawyer Notified:: y 02/15/19 14:50 Consult to Mental Health [CONS] Routine Reason For Exam: psychosis Place consult to:: [id number] Notified:: n [facility] Condition: Stable Hospital course: Unspecified Mood DO with psy features. No overt psychosis with the patient. Today the patient was calm during the assessment. DDx: Bipolar DO with psychosis, Schizophrenia Recommendation/Plan: Rescind 1013. Continue Zyprexa 5 mg PO HS for mood/psychosis. Discussed possible metabolic side effects with the patient ref erence Zyprexa, she verbalized understanding. Discussed with the patient proper diet and exercise. The patient's Lipid Panel was slightly abnormal. Case Mgmt involvement, the patient may need assistance with placement. Dispo: The patient can follow up with [facility] for outpatient psy services. Will staff with Dr Kenny Ernst. Disposition: DC-01 TO HOME OR SELFCARE Time spent for discharge: 33 mins Core Measure Documentation - Palliative Care Palliative Care/ Comfort Measures: Not Applicable - Core Measures Any of the following diagnoses?: none Exam - Physical Exam Narrative exam: General.: Appears well, no distress, nontoxic HEENT: Moist mucous membranes, extraocular muscles intact, no lymphadenopathy Neck: supple Cardiac: S1-S2 heard Lungs: clear to auscultation bilaterally Abdomen: soft , nontender, nondistended, bowel sounds positive Extremities: no edema clubbing or cyanosis Skin: no rash or lesions Neurologic: no gross focal deficits Psych: Patient is calm and cooperative - Constitutional Vitals: Temp Pulse Resp BP Pulse Ox 98.5 F 70 16 104/53 95 02/20/19 06:10 02/20/19 06:10 02/20/19 06:10 02/20/19 06:10 02/20/19 06:10 Plan Follow up with: [facility] [Outside] - 48 Hours (Wednesday - Wednesday 8:00am - 5:00pm. Walk-In only Must arrive at 7:45 as available slots are first come, first served. To be eligible for services, you must bring the following with you: 1. [place] - Issued State ID 2. Proof of Residence 3. Proof of Income 4. Insurance Cards 5. Referral documents and/or hospital discharge papers. ) IGGY GIRARD MD [Primary Care Provider] - 3-5 Days Prescriptions: OLANzapine [ZyPREXA] 5 mg PO HS #30 tablet
[2019-02-20 17:34] VITALS: BP 147/82
== END 2019-02-20 17:50 | disposition home or self-care (01) | DRG 71 ==
LOC: ED 11:11 → 3A 18:13
PROVIDERS: ADMIT Internal Medicine; ATTEND Internal Medicine
DX: G93.40 Encephalopathy, unspecified (principal); N39.0 Urinary tract infection, site not specified; R45.851 Suicidal ideations; F29 Unspecified psychosis not due to a substance or known physiological condition; G40.909 Epilepsy, unspecified, not intractable, without status epilepticus; F31.9 Bipolar disorder, unspecified; F20.9 Schizophrenia, unspecified; E87.6 Hypokalemia; D72.829 Elevated white blood cell count, unspecified; Z88.0 Allergy status to penicillin; Z88.1 Allergy status to other antibiotic agents; Z79.899 Other long term (current) drug therapy; Z82.49 Family history of ischemic heart disease and other diseases of the circulatory system
CPT/HCPCS: 36415; 70450; 71046; 80048; 80053; 80061; 80307; 80320; 81001; 81025; 82140; 82805; 83036; 83735; 84100; 85007; 85025; 85027; 87040; 87086; 87116; 94640; 96372; G0378; G0480; J1200; J1630; J1650; J3246; J3486; J7030

== ENCOUNTER 2019-03-21 03:12 | Emergency (ER) | payer MEDICAID ==
[2019-03-21] MEDS ORDERED: levETIRAcetam 1000 MG/NS 0.75% 1,000 MG/100 ML BAG IV ONE (04:43)
--- NOTE | 2019-03-21 04:47 | Emergency Department Report ---
ED Seizure HPI - General Chief Complaint: Seizure Stated Complaint: SEIZURE Time Seen by Provider: 03/21/19 04:40 Source: patient Mode of arrival: Ambulatory Limitations: No Limitations - History of Present Illness Initial Comments: Patient is 48 years old female with history of seizure and schizophrenia. Patient presented to the ER stating that she had one episode of seizure today. Patient described procedure asked generalized tonic colonic seizure. Patient stated that she is taking Keppra 1 g twice a day and Vimpat. Patient stated that she was confused about her medication yesterday. Patient denied any headache, neck pain, chest pain or extremity pain. Also denied any fever or chills. MD Complaint: seizure Description of Episode: loss of consciousness, tonic-clonic movement Witnessed:: Yes Seizure History: known seizure disorder Place: home - Related Data Home Medications Medication Instructions Recorded Confirmed Last Taken Lacosamide [Vimpat] 200 mg PO BID 02/07/19 02/14/19 02/07/19 Previous Rx's Medication Instructions Recorded Last Taken Type levETIRAcetam [Keppra TAB] 1,000 mg PO BID #60 tab 01/11/19 02/07/19 Rx Famotidine [Pepcid] 20 mg PO BID 7 Days tablet 02/09/19 Unknown Rx diphenhydrAMINE [Benadryl CAP] 25 mg PO Q8HR #15 capsule 02/09/19 Unknown Rx OLANzapine [ZyPREXA] 5 mg PO HS #30 tablet 02/20/19 Unknown Rx levETIRAcetam [Keppra TAB] 1,000 mg PO BID #60 tab 03/21/19 Unknown Rx Allergies Allergy/AdvReac Type Severity Reaction Status Date / Time doxycycline Allergy Rash Verified 02/07/19 10:56 Penicillins Allergy Rash Verified 02/07/19 10:56 phenobarbital Allergy Unknown Verified 03/21/19 03:20 phenytoin [From Dilantin] AdvReac Unknown Verified 01/11/19 04:33 ED Review of Systems ROS: Stated complaint: SEIZURE Other details as noted in HPI Comment: All other systems reviewed and negative Constitutional: denies: chills, fever Respiratory: denies: cough, shortness of breath, SOB with exertion Gastrointestinal: denies: abdominal pain, nausea, vomiting Musculoskeletal: denies: back pain Neurological: denies: headache ED Past Medical Hx - Past Medical History Previous Medical History?: Yes Hx Hypertension: No Hx CVA: No Hx Heart Attack/AMI: No Hx Congestive Heart Failure: No Hx Diabetes: No Hx Deep Vein Thrombosis: No Hx Pulmonary Embolism: No Hx GERD: No Hx Liver Disease: No Hx Renal Disease: No Hx Sickle Cell Disease: No Hx Arthritis: No Hx Headaches / Migraines: No Hx Seizures: Yes Hx Kidney Stones: No Hx Psychiatric Treatment: Yes (schizo) Hx Asthma: No Hx COPD: No Hx Tuberculosis: No Hx Dementia: No Hx HIV: No Additional medical history: epilepsy - Surgical History Past Surgical History?: No Hx Coronary Stent: No Hx Open Heart Surgery: No Hx Pacemaker: No Hx Internal Defibrillator: No Hx Cholecystectomy: No Hx Appendectomy: No Hx Breast Surgery: No - Social History Smoking Status: Never Smoker Substance Use Type: None - Medications Home Medications: Home Medications Medication Instructions Recorded Confirmed Last Taken Type levETIRAcetam [Keppra TAB] 1,000 mg PO BID #60 tab 01/11/19 02/14/19 02/07/19 Rx Lacosamide [Vimpat] 200 mg PO BID 02/07/19 02/14/19 02/07/19 History Famotidine [Pepcid] 20 mg PO BID 7 Days tablet 02/09/19 02/14/19 Unknown Rx diphenhydrAMINE [Benadryl CAP] 25 mg PO Q8HR #15 capsule 02/09/19 02/14/19 Unknown Rx OLANzapine [ZyPREXA] 5 mg PO HS #30 tablet 02/20/19 Unknown Rx levETIRAcetam [Keppra TAB] 1,000 mg PO BID #60 tab 03/21/19 Unknown Rx ED Physical Exam - General Limitations: No Limitations General appearance: alert, in no apparent distress - Head Head exam: Present: atraumatic, normocephalic, normal inspection - Eye Eye exam: Present: normal appearance, PERRL - ENT ENT exam: Present: normal exam, normal orophraynx, mucous membranes moist - Neck Neck exam: Present: normal inspection, full ROM. Absent: tenderness, meningismus, lymphadenopathy, thyromegaly - Respiratory Respiratory exam: Present: normal lung sounds bilaterally - Cardiovascular Cardiovascular Exam: Present: regular rate, normal rhythm, normal heart sounds - GI/Abdominal GI/Abdominal exam: Present: soft, normal bowel sounds. Absent: distended, tenderness, guarding, rebound, rigid - Extremities Exam Extremities exam: Present: normal inspection, full ROM, normal capillary refill. Absent: tenderness, pedal edema, calf tenderness - Back Exam Back exam: Present: normal inspection, full ROM. Absent: CVA tenderness (R) - Neurological Exam Neurological exam: Present: alert, oriented X3, CN II-XII intact, normal gait, reflexes normal - Psychiatric Psychiatric exam: Present: normal mood - Skin Skin exam: Present: warm, intact, normal color ED Course Vital Signs 03/21/19 03/21/19 03/21/19 03:23 05:46 06:00 Temperature 98.3 F Pulse Rate 97 H Respiratory 16 Rate Blood Pressure 136/73 144/83 141/69 O2 Sat by Pulse 100 100 98 Oximetry 03/21/19 03/21/19 06:16 06:29 Temperature Pulse Rate 84 Respiratory Rate Blood Pressure 141/69 O2 Sat by Pulse 99 Oximetry ED Medical Decision Making - Lab Data Result diagrams: 03/21/19 05:00 03/21/19 05:00 - Medical Decision Making Patient is 48 years old female with history of seizure and schizophrenia. Patient presented to the ER stating that she had one episode of seizure today. Patient described procedure asked generalized tonic colonic seizure. Patient stated that she is taking Keppra 1 g twice a day and Vimpat. Patient stated that she was confused about her medication yesterday. Patient denied any headache, neck pain, chest pain or extremity pain. Also denied any fever or chills. Labs reviewed and is unremarkable. Patient received 1 g of Keppra IV. No seizure activity noticed in the ER. Patient is alert, oriented 3 no acute distress. Patient given a prescription for Keppra 1 g twice a day and advised to follow-up with her neurologist in the next 2-3 days. Patient also advised to return to the ER if symptoms are not improved. Critical care attestation.: If time is entered above; I have spent that time in minutes in the direct care of this critically ill patient, excluding procedure time. ED Disposition Clinical Impression: Seizure disorder Disposition: DC-01 TO HOME OR SELFCARE Is pt being admited?: No Condition: Stable Instructions: Recurrent Seizures Adult (ED) Prescriptions: levETIRAcetam [Keppra TAB] 1,000 mg PO BID #60 tab Referrals: PRIMARY CARE, [Referring] - 3-5 Days
[2019-03-21 05:13] LABS: Hemoglobin 12.3 gm/dl (10.1-14.3); Mean Corpuscular HGB Conc 33 % (30-34); Mean Corpuscular Volume 80 fl (79-97); Platelet Count 329 K/mm3 (140-440); Red Blood Count 4.73 M/mm3 (3.65-5.03); Red Cell Distribution Width 16.6 % (13.2-15.2)
[2019-03-21 05:28] LABS: BUN/Creatinine Ratio 9; Blood Urea Nitrogen 6 mg/dL (7-17); Calcium 8.8 mg/dL (8.4-10.2); Hemolysis Index 1
[2019-03-21 05:49] LABS: Bilirubin,Urine NEG (Negative); Blood,Urine LG (Negative); Color,Urine Yellow (Yellow); Mucus,Urine 1+ /HPF; Urobilinogen,Urine < 2.0 mg/dL (<2.0)
[2019-03-21 06:29] VITALS: BP 141/69
== END 2019-03-21 06:29 | disposition home or self-care (01) ==
LOC: ED 03:12
DX: G40.909 Epilepsy, unspecified, not intractable, without status epilepticus (principal); F20.9 Schizophrenia, unspecified; Z88.0 Allergy status to penicillin; Z88.1 Allergy status to other antibiotic agents; Z88.8 Allergy status to other drugs, medicaments and biological substances; Z79.899 Other long term (current) drug therapy
CPT/HCPCS: 36415; 80048; 81001; 84703; 85027; 87076; 87086; 87186; 96374; 99284; J1953